=== PATIENT | male | born 1970 | race American Indian/Alaskan Native ===

== ENCOUNTER 2018-08-04 13:50 | Inpatient (IN) | payer SELFPAY ==
[2018-08-04] MEDS ORDERED: ZOFRAN ONE (13:56)
[2018-08-04] MEDS ORDERED: ZOFRAN IV ONE ×2 (14:23→16:18)
[2018-08-04] MEDS ORDERED: NACL 0.9% 1000 ML 1,000 ML IV ONE ×2 (14:23→16:18)
[2018-08-04] MEDS ORDERED: PROTONIX IV ONE (14:23)
[2018-08-04 14:44] LABS: Hematocrit 42.9 % (35.5-45.6); Hemoglobin 13.6 gm/dl (11.8-15.2); Mean Corpuscular HGB Conc 32 % (32-34); Mean Corpuscular Volume 70 fl (84-94); Platelet Count 253 K/mm3 (140-440); Red Blood Count 6.11 M/mm3 (3.65-5.03)
[2018-08-04 14:47] LABS: Red Cell Distribution Width 24.2 % (13.2-15.2)
[2018-08-04 14:56] LABS: Partial Thromboplastin Time 31.1 Sec. (24.2-36.6)
[2018-08-04 15:03] LABS: Creatine Kinase MB 1.2 ng/mL (0.0-4.0)
[2018-08-04 15:04] LABS: Alanine Aminotransferase 9 units/L (7-56); Albumin 5.2 g/dL (3.9-5); BUN/Creatinine Ratio 13; Blood Urea Nitrogen 9 mg/dL (9-20); Calcium 10.2 mg/dL (8.4-10.2); Hemolysis Index 2
[2018-08-04 15:07] LABS: Bilirubin,Direct < 0.2 mg/dL (0-0.2)
--- NOTE | 2018-08-04 15:08 | XRay Report ---
PROCEDURE: XR CHEST 1V AP TECHNIQUE: Chest radiograph single view. HISTORY: hypertension COMPARISONS: None . FINDINGS: Heart: Normal. Mediastinum/Vessels: Normal. Lungs/Pleural space: Normal. Bony thorax: No acute osseous abnormality. Life support devices: None. IMPRESSION: No acute cardiopulmonary abnormality. This document is electronically signed by Erwin Andersen MD., Aug 04 2018 03:06:35 PM ET
[2018-08-04 15:54] LABS: Anisocytosis 2+; Basophils % (Manual) 0 % (0.0-1.8); Eosinophils % (Manual) 0 % (0.0-4.3); Hypochromasia 1+; Total Cells Counted 100
[2018-08-04 15:55] LABS: Platelet Estimate Consistent w Auto; Poikilocytosis Few
--- NOTE | 2018-08-04 15:56 | Cat Scan Report ---
PROCEDURE: CT HEAD/BRAIN WO CON TECHNIQUE: Computerized tomography of the head was performed without contrast material. HISTORY: syncope, seizure COMPARISONS: None . FINDINGS: Skull and scalp: Normal . Paranasal sinuses: Normal . Ventricles and subarachnoid spaces: Normal . Cerebrum: No evidence of hemorrhage, acute infarction or mass . Cerebellum and brainstem: No evidence of hemorrhage, acute infarction or mass . Vasculature: Normal . Other: None . ASPECTS: 10 IMPRESSION: Normal Examination . This document is electronically signed by Jacquie Gallwoay MD., Aug 04 2018 03:54:19 PM ET
--- NOTE | 2018-08-04 16:05 | Emergency Department Report ---
ED General Adult HPI - General Chief complaint: Seizure Stated complaint: SYNCOPY Time Seen by Provider: 08/04/18 14:12 Source: patient Mode of arrival: Stretcher Limitations: No Limitations - History of Present Illness Initial comments: This is a 48-year-old male who states he has very poor dentition and has not been able to get dental care due to his lack of funds/coverage. He states he's never had a known serious dental infection. He states he has been vomiting and unable to eat. About 3 years ago he states he had a negative HIV test. Today he had an apparent seizure. He was found by his "fianc" frothing at the mouth. She didn't actually witness tonic-clonic movements. Patient states that he may have had a seizure when he was young but not since. He is not on any anticonvulsant medication. His fianc states that he was unresponsive. He arrives in the emergency department complaining of ongoing nausea but no pain. -: Gradual, hour(s) (vomiting), year(s) (dental problems) Severity scale (0 -10): 0 Associated Symptoms: nausea/vomiting - Related Data Allergies Allergy/AdvReac Type Severity Reaction Status Date / Time Penicillins Allergy Hives Verified 08/04/18 14:01 ED Review of Systems ROS: Stated complaint: SYNCOPY Other details as noted in HPI Constitutional: fever (thinks had fever). denies: chills Eyes: denies: eye pain, eye discharge, vision change ENT: as per HPI. denies: ear pain, throat pain Respiratory: denies: cough, shortness of breath, wheezing Cardiovascular: syncope. denies: chest pain, palpitations Endocrine: no symptoms reported Gastrointestinal: denies: abdominal pain, nausea, diarrhea Genitourinary: denies: urgency, dysuria Musculoskeletal: denies: back pain, joint swelling, arthralgia Skin: denies: rash, lesions Neurological: other (seizure). denies: headache, weakness, paresthesias Psychiatric: denies: anxiety, depression Hematological/Lymphatic: denies: easy bleeding, easy bruising ED Past Medical Hx - Past Medical History Previous Medical History?: Yes Hx Hypertension: Yes Hx GERD: Yes Additional medical history: Sickle Cell trait - Social History Smoking Status: Never Smoker Substance Use Type: None ED Physical Exam - General Limitations: No Limitations General appearance: alert, in no apparent distress, other (appears volume depleted) - Head Head exam: Present: atraumatic, normocephalic - Eye Eye exam: Present: normal appearance. Absent: scleral icterus - ENT ENT exam: Present: mucous membranes dry, other (horrible carrious dentition diffusely) - Neck Neck exam: Present: normal inspection. Absent: tenderness, meningismus - Respiratory Respiratory exam: Present: normal lung sounds bilaterally. Absent: respiratory distress - Cardiovascular Cardiovascular Exam: Present: regular rate, normal rhythm. Absent: systolic murmur, diastolic murmur, rubs, gallop - GI/Abdominal GI/Abdominal exam: Present: soft, normal bowel sounds. Absent: distended, tenderness, guarding, rebound, rigid - Rectal Rectal exam: Present: deferred - Extremities Exam Extremities exam: Present: normal inspection - Back Exam Back exam: Present: normal inspection - Neurological Exam Neurological exam: Present: alert, oriented X3, CN II-XII intact. Absent: motor sensory deficit - Psychiatric Psychiatric exam: Present: normal affect, normal mood - Skin Skin exam: Present: warm, dry, intact, normal color. Absent: rash ED Course Vital Signs 08/04/18 13:57 Temperature 99.3 F Pulse Rate 72 Respiratory 18 Rate Blood Pressure 163/84 [Right] O2 Sat by Pulse 96 Oximetry - Reevaluation(s) Reevaluation #1: Patient with hypokalemia, intractable vomiting, dental infection, seizure versus syncope and bifascicular block. He will be admitted by Dr. Barone to the hospitalist service. 08/04/18 16:21 ED Medical Decision Making - Lab Data Result diagrams: 08/04/18 14:24 08/04/18 14:24 Laboratory Results - last 24 hr 08/04/18 08/04/18 08/04/18 14:24 14:24 14:24 WBC 11.2 H RBC 6.11 H Hgb 13.6 Hct 42.9 MCV 70 L MCH 22 L MCHC 32 RDW 24.2 H Plt Count 253 Add Manual Diff Complete Total Counted 100 Seg Neuts % (Manual) 90.0 H Band Neutrophils % 0 Lymphocytes % (Manual) 7.0 L Reactive Lymphs % (Man) 0 Monocytes % (Manual) 3.0 Eosinophils % (Manual) 0 Basophils % (Manual) 0 Metamyelocytes % 0 Myelocytes % 0 Promyelocytes % 0 Blast Cells % 0 Nucleated RBC % Not Reportable Seg Neutrophils # Man 10.1 H Band Neutrophils # 0.0 Lymphocytes # (Manual) 0.8 L Abs React Lymphs (Man) 0.0 Monocytes # (Manual) 0.3 Eosinophils # (Manual) 0.0 Basophils # (Manual) 0.0 Metamyelocytes # 0.0 Myelocytes # 0.0 Promyelocytes # 0.0 Blast Cells # 0.0 WBC Morphology Not Reportable Hypersegmented Neuts Not Reportable Hyposegmented Neuts Not Reportable Hypogranular Neuts Not Reportable Smudge Cells Not Reportable Toxic Granulation Not Reportable Toxic Vacuolation Not Reportable Dohle Bodies Not Reportable Pelger-Huet Anomaly Not Reportable Cordelia Rods Not Reportable Platelet Estimate Consistent w auto Clumped Platelets Not Reportable Plt Clumps, EDTA Not Reportable Large Platelets Not Reportable Giant Platelets Not Reportable Platelet Satelliting Not Reportable Plt Morphology Comment Not Reportable RBC Morphology Not Reportable Dimorphic RBCs Not Reportable Polychromasia Few Hypochromasia 1+ Poikilocytosis Few Anisocytosis 2+ Microcytosis 1+ Macrocytosis Not Reportable Spherocytes Not Reportable Pappenheimer Bodies Not Reportable Sickle Cells Not Reportable Target Cells Not Reportable Tear Drop Cells Not Reportable Ovalocytes Not Reportable Helmet Cells Not Reportable [place] Bodies Not Reportable [place] Rings Not Reportable [place] Cells Not Reportable Bite Cells Not Reportable Crenated Cell Not Reportable Elliptocytes Not Reportable Acanthocytes (Spur) Not Reportable Rouleaux Not Reportable Hemoglobin C Crystals Not Reportable Schistocytes Not Reportable Malaria parasites Not Reportable Oleg Bodies Not Reportable Hem Pathologist Commnt No PT 13.8 INR 1.00 APTT 31.1 Sodium 137 Potassium 3.3 L Chloride 99.0 Carbon Dioxide 19 L Anion Gap 22 BUN 9 Creatinine 0.7 L Estimated GFR > 60 BUN/Creatinine Ratio 13 Glucose 107 H Lactic Acid Calcium 10.2 Magnesium Total Bilirubin 0.70 Direct Bilirubin < 0.2 AST 15 ALT 9 Alkaline Phosphatase 96 Total Creatine Kinase CK-MB (CK-2) CK-MB (CK-2) Rel Index Troponin T NT-Pro-B Natriuret Pep Total Protein 10.1 H Albumin 5.2 H Albumin/Globulin Ratio 1.1 08/04/18 08/04/18 08/04/18 14:24 14:24 14:24 WBC RBC Hgb Hct MCV MCH MCHC RDW Plt Count Add Manual Diff Total Counted Seg Neuts % (Manual) Band Neutrophils % Lymphocytes % (Manual) Reactive Lymphs % (Man) Monocytes % (Manual) Eosinophils % (Manual) Basophils % (Manual) Metamyelocytes % Myelocytes % Promyelocytes % Blast Cells % Nucleated RBC % Seg Neutrophils # Man Band Neutrophils # Lymphocytes # (Manual) Abs React Lymphs (Man) Monocytes # (Manual) Eosinophils # (Manual) Basophils # (Manual) Metamyelocytes # Myelocytes # Promyelocytes # Blast Cells # WBC Morphology TNR Hypersegmented Neuts Hyposegmented Neuts Hypogranular Neuts Smudge Cells Toxic Granulation Toxic Vacuolation Dohle Bodies Pelger-Huet Anomaly Cordelia Rods Platelet Estimate Clumped Platelets Plt Clumps, EDTA Large Platelets Giant Platelets Platelet Satelliting Plt Morphology Comment RBC Morphology Dimorphic RBCs Polychromasia Hypochromasia Poikilocytosis Anisocytosis Microcytosis Macrocytosis Spherocytes Pappenheimer Bodies Sickle Cells Target Cells Tear Drop Cells Ovalocytes Helmet Cells [place] Bodies [place] Rings [place] Cells Bite Cells Crenated Cell Elliptocytes Acanthocytes (Spur) Rouleaux Hemoglobin C Crystals Schistocytes Malaria parasites Oleg Bodies Hem Pathologist Commnt PT INR APTT Sodium Potassium Chloride Carbon Dioxide Anion Gap BUN Creatinine Estimated GFR BUN/Creatinine Ratio Glucose Lactic Acid 2.00 Calcium Magnesium 1.80 Total Bilirubin Direct Bilirubin AST ALT Alkaline Phosphatase Total Creatine Kinase 77 CK-MB (CK-2) 1.2 CK-MB (CK-2) Rel Index 1.5 Troponin T < 0.010 NT-Pro-B Natriuret Pep 89.74 Total Protein Albumin Albumin/Globulin Ratio - EKG Data -: EKG Interpreted by Co EKG shows normal: sinus rhythm - EKG Data Interpretation: nonspecific ST-T wave terra, other (left anterior fascicular block/right bundle-branch block/5 fascicular block) - Radiology Data Radiology results: pending (CT head is pending) Critical care attestation.: If time is entered above; I have spent that time in minutes in the direct care of this critically ill patient, excluding procedure time. ED Disposition Clinical Impression: Hypokalemia, Bifascicular block, Seizure, Volume depletion Syncope Qualifiers: Syncope type: unspecified Qualified Code(s): R55 - Syncope and collapse Intractable vomiting Qualifiers: Vomiting type: unspecified Nausea presence: with nausea Qualified Code(s): R11.2 - Nausea with vomiting, unspecified Disposition: 09 OP ADMIT IP TO THIS HOSP Is pt being admited?: Yes Does the pt Need Aspirin: No Condition: Stable Instructions: Syncope (ED) Time of Disposition: 16:24
--- NOTE | 2018-08-04 16:17 | Emergency Department Report ---
ED Syncope HPI - General Chief Complaint: Seizure Stated Complaint: SYNCOPY Time Seen by Provider: 08/04/18 14:12 - History of Present Illness Initial Comments: Mr. Santos is a 48 yo male with hx of sickle cell trait, anemia, GERD, anxiety, HTN, peripheral neuropathy who presents with fainting episode while vomiting. He has not been feeling well for the past 2 days. He attributed his illness to bad teeth. While vomiting at the toilet, he remembers going out. His fiancee found him on the ground. He appeared drowsy. She called 911. He denies chest pain or palpitations. PCP Dr. Gutiérrez in [place], [place] Timing/Prior Episodes: single episode today Precipitating Factors: Positive: other (vomiting) Loss of Consciousness: unsure Current Symptoms: back to normal - Related Data Allergies/Adverse Reactions: Allergies Penicillins Allergy (Verified 08/04/18 14:01) Hives ED Review of Systems ROS: Stated complaint: SYNCOPY Other details as noted in HPI Comment: All other systems reviewed and negative Constitutional: malaise Cardiovascular: denies: chest pain Gastrointestinal: vomiting ED Past Medical Hx - Past Medical History Previous Medical History?: Yes Hx Hypertension: Yes Hx GERD: Yes Additional medical history: Sickle Cell trait - Social History Smoking Status: Never Smoker Substance Use Type: None ED Physical Exam - General Limitations: No Limitations General appearance: alert, in no apparent distress - Head Head exam: Present: atraumatic, normocephalic - Eye Eye exam: Present: normal appearance - ENT ENT exam: Present: mucous membranes moist - Neck Neck exam: Present: normal inspection, full ROM - Respiratory Respiratory exam: Present: normal lung sounds bilaterally. Absent: respiratory distress, wheezes, rales, stridor - Cardiovascular Cardiovascular Exam: Present: regular rate, normal rhythm, normal heart sounds. Absent: systolic murmur, diastolic murmur, rubs, gallop - GI/Abdominal GI/Abdominal exam: Present: soft, normal bowel sounds. Absent: distended, tenderness, guarding, rebound - Rectal Rectal exam: Present: deferred - Extremities Exam Extremities exam: Present: normal inspection - Back Exam Back exam: Present: normal inspection - Neurological Exam Neurological exam: Present: alert, oriented X3 - Psychiatric Psychiatric exam: Present: normal affect, normal mood - Skin Skin exam: Present: warm, dry, intact, normal color. Absent: rash ED Course Vital Signs 08/04/18 13:57 Temperature 99.3 F Pulse Rate 72 Respiratory 18 Rate Blood Pressure 163/84 [Right] O2 Sat by Pulse 96 Oximetry ED Medical Decision Making - Lab Data Result diagrams: 08/04/18 14:24 08/04/18 14:24 Laboratory Results - last 24 hr 08/04/18 08/04/18 08/04/18 14:24 14:24 14:24 WBC 11.2 H RBC 6.11 H Hgb 13.6 Hct 42.9 MCV 70 L MCH 22 L MCHC 32 RDW 24.2 H Plt Count 253 Add Manual Diff Complete Total Counted 100 Seg Neuts % (Manual) 90.0 H Band Neutrophils % 0 Lymphocytes % (Manual) 7.0 L Reactive Lymphs % (Man) 0 Monocytes % (Manual) 3.0 Eosinophils % (Manual) 0 Basophils % (Manual) 0 Metamyelocytes % 0 Myelocytes % 0 Promyelocytes % 0 Blast Cells % 0 Nucleated RBC % Not Reportable Seg Neutrophils # Man 10.1 H Band Neutrophils # 0.0 Lymphocytes # (Manual) 0.8 L Abs React Lymphs (Man) 0.0 Monocytes # (Manual) 0.3 Eosinophils # (Manual) 0.0 Basophils # (Manual) 0.0 Metamyelocytes # 0.0 Myelocytes # 0.0 Promyelocytes # 0.0 Blast Cells # 0.0 WBC Morphology Not Reportable Hypersegmented Neuts Not Reportable Hyposegmented Neuts Not Reportable Hypogranular Neuts Not Reportable Smudge Cells Not Reportable Toxic Granulation Not Reportable Toxic Vacuolation Not Reportable Dohle Bodies Not Reportable Pelger-Huet Anomaly Not Reportable Cordelia Rods Not Reportable Platelet Estimate Consistent w auto Clumped Platelets Not Reportable Plt Clumps, EDTA Not Reportable Large Platelets Not Reportable Giant Platelets Not Reportable Platelet Satelliting Not Reportable Plt Morphology Comment Not Reportable RBC Morphology Not Reportable Dimorphic RBCs Not Reportable Polychromasia Few Hypochromasia 1+ Poikilocytosis Few Anisocytosis 2+ Microcytosis 1+ Macrocytosis Not Reportable Spherocytes Not Reportable Pappenheimer Bodies Not Reportable Sickle Cells Not Reportable Target Cells Not Reportable Tear Drop Cells Not Reportable Ovalocytes Not Reportable Helmet Cells Not Reportable [place] Bodies Not Reportable [place] Rings Not Reportable [place] Cells Not Reportable Bite Cells Not Reportable Crenated Cell Not Reportable Elliptocytes Not Reportable Acanthocytes (Spur) Not Reportable Rouleaux Not Reportable Hemoglobin C Crystals Not Reportable Schistocytes Not Reportable Malaria parasites Not Reportable Oleg Bodies Not Reportable Hem Pathologist Commnt No PT 13.8 INR 1.00 APTT 31.1 Sodium 137 Potassium 3.3 L Chloride 99.0 Carbon Dioxide 19 L Anion Gap 22 BUN 9 Creatinine 0.7 L Estimated GFR > 60 BUN/Creatinine Ratio 13 Glucose 107 H Lactic Acid Calcium 10.2 Magnesium Total Bilirubin 0.70 Direct Bilirubin < 0.2 AST 15 ALT 9 Alkaline Phosphatase 96 Total Creatine Kinase CK-MB (CK-2) CK-MB (CK-2) Rel Index Troponin T NT-Pro-B Natriuret Pep Total Protein 10.1 H Albumin 5.2 H Albumin/Globulin Ratio 1.1 08/04/18 08/04/18 08/04/18 14:24 14:24 14:24 WBC RBC Hgb Hct MCV MCH MCHC RDW Plt Count Add Manual Diff Total Counted Seg Neuts % (Manual) Band Neutrophils % Lymphocytes % (Manual) Reactive Lymphs % (Man) Monocytes % (Manual) Eosinophils % (Manual) Basophils % (Manual) Metamyelocytes % Myelocytes % Promyelocytes % Blast Cells % Nucleated RBC % Seg Neutrophils # Man Band Neutrophils # Lymphocytes # (Manual) Abs React Lymphs (Man) Monocytes # (Manual) Eosinophils # (Manual) Basophils # (Manual) Metamyelocytes # Myelocytes # Promyelocytes # Blast Cells # WBC Morphology TNR Hypersegmented Neuts Hyposegmented Neuts Hypogranular Neuts Smudge Cells Toxic Granulation Toxic Vacuolation Dohle Bodies Pelger-Huet Anomaly Cordelia Rods Platelet Estimate Clumped Platelets Plt Clumps, EDTA Large Platelets Giant Platelets Platelet Satelliting Plt Morphology Comment RBC Morphology Dimorphic RBCs Polychromasia Hypochromasia Poikilocytosis Anisocytosis Microcytosis Macrocytosis Spherocytes Pappenheimer Bodies Sickle Cells Target Cells Tear Drop Cells Ovalocytes Helmet Cells [place] Bodies [place] Rings [place] Cells Bite Cells Crenated Cell Elliptocytes Acanthocytes (Spur) Rouleaux Hemoglobin C Crystals Schistocytes Malaria parasites Oleg Bodies Hem Pathologist Commnt PT INR APTT Sodium Potassium Chloride Carbon Dioxide Anion Gap BUN Creatinine Estimated GFR BUN/Creatinine Ratio Glucose Lactic Acid 2.00 Calcium Magnesium 1.80 Total Bilirubin Direct Bilirubin AST ALT Alkaline Phosphatase Total Creatine Kinase 77 CK-MB (CK-2) 1.2 CK-MB (CK-2) Rel Index 1.5 Troponin T < 0.010 NT-Pro-B Natriuret Pep 89.74 Total Protein Albumin Albumin/Globulin Ratio - Radiology Data Radiology results: report reviewed CT head and portable chest x-ray no acute process according to radiology report - Medical Decision Making vasovagal syncope while vomiting. NO acute infectious process evident. dc'd home after IVF. Critical care attestation.: If time is entered above; I have spent that time in minutes in the direct care of this critically ill patient, excluding procedure time. ED Disposition Clinical Impression: Syncope Disposition: DC-01 TO HOME OR SELFCARE Is pt being admited?: No Does the pt Need Aspirin: No Condition: Stable Instructions: Syncope (ED)
[2018-08-04] MEDS ORDERED: CLEOCIN 600 MG/50 mL 600 MG/50 ML BAG IV ONE (16:19)
[2018-08-04] MEDS ORDERED: MAGNESIUM SULFATE 2GM/50ML 2 GM/50 ML BAG IV ONE (16:21)
[2018-08-04 16:38] LABS: Bilirubin,Urine NEG (Negative); Blood,Urine MOD (Negative); Color,Urine Yellow (Yellow); Mucus,Urine FEW /HPF; Urobilinogen,Urine < 2.0 mg/dL (<2.0); WBC,Urine < 1.0 /HPF (0.0-6.0)
[2018-08-04 16:47] LABS: Amphetamine Screen,Urine PRESUMPTIVE NEGATIVE; Benzodiazepines Screen,Urine PRESUMPTIVE NEGATIVE; Cannabinoid Screen,Urine PRESUMPTIVE NEGATIVE; Cocaine Screen,Urine PRESUMPTIVE NEGATIVE; Methadone Screen,Urine PRESUMPTIVE NEGATIVE; Opiate Screen,Urine PRESUMPTIVE NEGATIVE
[2018-08-04] MEDS: DILAUDID IV PRN ×2 (18:50→22:04)
[2018-08-04] MEDS: REGLAN IV PRN (18:50)
[2018-08-04] MEDS: KCL 10MEQ/100ML 10 MEQ/100 ML BAG IV SCH ×2 (20:12→20:57)
--- NOTE | 2018-08-04 21:17 | History and Physical Report ---
History of Present Illness Date of examination: 08/04/18 Date of admission: 08/04/18 16:25 Chief complaint: New onset seizures couple of hours ago. History of present illness: 48-year-old AA male brought in for seizures and persistent vomiting.Patient has been vomiting for couple of days.His fiance noted Seizures c/w tonic clonic movements and followed by unresponsiveness.Apparently had seizures few years ago but not on any anticonvulsants.Seizures were followed b unresponsiveness.Was alert and oriented during my examination. Past Medical History Hypertension: Yes GERD: Yes Sickle Cell trait Past surgical history None Family History Non contributory Social History Smoking Status: Never Smoker Substance Use Type: None Review of Systems ROS: Stated complaint: SYNCOPY Other details as noted in HPI Constitutional: fever (thinks had fever). denies: chills Eyes: denies: eye pain, eye discharge, vision change ENT: as per HPI. denies: ear pain, throat pain Respiratory: denies: cough, shortness of breath, wheezing Cardiovascular: syncope. denies: chest pain, palpitations Endocrine: no symptoms reported Gastrointestinal: denies: abdominal pain, nausea, diarrhea Genitourinary: denies: urgency, dysuria Musculoskeletal: denies: back pain, joint swelling, arthralgia Skin: denies: rash, lesions Neurological: other (seizure). denies: headache, weakness, paresthesias Psychiatric: denies: anxiety, depression Hematological/Lymphatic: denies: easy bleeding, easy bruising Medications and Allergies Allergies Allergy/AdvReac Type Severity Reaction Status Date / Time Penicillins Allergy Hives Verified 08/04/18 14:01 Active Meds: Active Medications Hydromorphone HCl (Dilaudid) 0.5 mg IV Q3H PRN PRN Reason: Pain , Severe (7-10) Last Admin: 08/04/18 18:50 Dose: 0.5 mg Documented by: Metoclopramide HCl (Reglan) 10 mg IV Q6H PRN PRN Reason: Nausea And Vomiting Last Admin: 08/04/18 18:50 Dose: 10 mg Documented by: Promethazine HCl (Phenergan) 25 mg NH Q6H PRN PRN Reason: Nausea And Vomiting Exam - Constitutional Vitals: Temp Pulse Resp BP Pulse Ox 99.6 F 76 17 154/89 99 08/04/18 18:00 08/04/18 18:00 08/04/18 19:20 08/04/18 18:00 08/04/18 18:00 General appearance: Present: no acute distress, well-nourished - EENT Eyes: Present: PERRL ENT: hearing intact, clear oral mucosa - Neck Neck: Present: supple, normal ROM - Respiratory Respiratory effort: normal Respiratory: bilateral: CTA - Cardiovascular Heart rate: 78 Rhythm: regular Heart Sounds: Present: S1 & S2. Absent: rub, click - Extremities Extremities: no ischemia, pulses intact, pulses symmetrical, No edema Peripheral Pulses: within normal limits - Abdominal General gastrointestinal: Present: soft, non-tender, non-distended, normal bowel sounds Male genitourinary: Present: normal - Integumentary Integumentary: Present: clear, warm, dry - Musculoskeletal Musculoskeletal: gait normal, strength equal bilaterally - Psychiatric Psychiatric: appropriate mood/affect, intact judgment & insight - Neurologic Neurologic: CNII-XII intact, moves all extremities - Allied Health Allied health notes reviewed: nursing, case management Results - Labs CBC & Chem 7: 08/04/18 14:24 08/04/18 14:24 Labs: Laboratory Last Values WBC 11.2 K/mm3 (4.5-11.0) H 08/04/18 14:24 RBC 6.11 M/mm3 (3.65-5.03) H 08/04/18 14:24 Hgb 13.6 gm/dl (11.8-15.2) 08/04/18 14:24 Hct 42.9 % (35.5-45.6) 08/04/18 14:24 MCV 70 fl (84-94) L 08/04/18 14:24 MCH 22 pg (28-32) L 08/04/18 14:24 MCHC 32 % (32-34) 08/04/18 14:24 RDW 24.2 % (13.2-15.2) H 08/04/18 14:24 Plt Count 253 K/mm3 (140-440) 08/04/18 14:24 Add Manual Diff Complete 08/04/18 14:24 Total Counted 100 08/04/18 14:24 Seg Neuts % (Manual) 90.0 % (40.0-70.0) H 08/04/18 14:24 0 % 08/04/18 14:24 7.0 % (13.4-35.0) L 08/04/18 14:24 Reactive Lymphs % (Man) 0 % 08/04/18 14:24 3.0 % (0.0-7.3) 08/04/18 14:24 0 % (0.0-4.3) 08/04/18 14:24 0 % (0.0-1.8) 08/04/18 14:24 0 % 08/04/18 14:24 0 % 08/04/18 14:24 0 % 08/04/18 14:24 0 % 08/04/18 14:24 Nucleated RBC % Not Reportable 08/04/18 14:24 Seg Neutrophils # Man 10.1 K/mm3 (1.8-7.7) H 08/04/18 14:24 Band Neutrophils # 0.0 K/mm3 08/04/18 14:24 0.8 K/mm3 (1.2-5.4) L 08/04/18 14:24 Abs React Lymphs (Man) 0.0 K/mm3 08/04/18 14:24 0.3 K/mm3 (0.0-0.8) 08/04/18 14:24 0.0 K/mm3 (0.0-0.4) 08/04/18 14:24 0.0 K/mm3 (0.0-0.1) 08/04/18 14:24 0.0 K/mm3 08/04/18 14:24 0.0 K/mm3 08/04/18 14:24 0.0 K/mm3 08/04/18 14:24 Blast Cells # 0.0 K/mm3 08/04/18 14:24 WBC Morphology Not Reportable 08/04/18 14:24 WBC Morphology TNR 08/04/18 14:24 Hypersegmented Neuts Not Reportable 08/04/18 14:24 Hyposegmented Neuts Not Reportable 08/04/18 14:24 Hypogranular Neuts Not Reportable 08/04/18 14:24 Not Reportable 08/04/18 14:24 Not Reportable 08/04/18 14:24 Not Reportable 08/04/18 14:24 Not Reportable 08/04/18 14:24 Not Reportable 08/04/18 14:24 Not Reportable 08/04/18 14:24 Consistent w auto 08/04/18 14:24 Not Reportable 08/04/18 14:24 Plt Clumps, EDTA Not Reportable 08/04/18 14:24 Not Reportable 08/04/18 14:24 Not Reportable 08/04/18 14:24 Not Reportable 08/04/18 14:24 Plt Morphology Comment Not Reportable 08/04/18 14:24 RBC Morphology Not Reportable 08/04/18 14:24 Dimorphic RBCs Not Reportable 08/04/18 14:24 Few 08/04/18 14:24 1+ 08/04/18 14:24 Few 08/04/18 14:24 2+ 08/04/18 14:24 1+ 08/04/18 14:24 Not Reportable 08/04/18 14:24 Not Reportable 08/04/18 14:24 Not Reportable 08/04/18 14:24 Not Reportable 08/04/18 14:24 Not Reportable 08/04/18 14:24 Not Reportable 08/04/18 14:24 Not Reportable 08/04/18 14:24 Not Reportable 08/04/18 14:24 Not Reportable 08/04/18 14:24 Not Reportable 08/04/18 14:24 Not Reportable 08/04/18 14:24 Not Reportable 08/04/18 14:24 Not Reportable 08/04/18 14:24 Not Reportable 08/04/18 14:24 Acanthocytes (Spur) Not Reportable 08/04/18 14:24 Rouleaux Not Reportable 08/04/18 14:24 Not Reportable 08/04/18 14:24 Not Reportable 08/04/18 14:24 Not Reportable 08/04/18 14:24 Not Reportable 08/04/18 14:24 Hem Pathologist Commnt No 08/04/18 14:24 PT 13.8 Sec. (12.2-14.9) 08/04/18 14:24 INR 1.00 (0.87-1.13) 08/04/18 14:24 APTT 31.1 Sec. (24.2-36.6) 08/04/18 14:24 Sodium 137 mmol/L (137-145) 08/04/18 14:24 Potassium 3.3 mmol/L (3.6-5.0) L 08/04/18 14:24 Chloride 99.0 mmol/L (98-107) 08/04/18 14:24 Carbon Dioxide 19 mmol/L (22-30) L 08/04/18 14:24 22 mmol/L 08/04/18 14:24 BUN 9 mg/dL (9-20) 08/04/18 14:24 0.7 mg/dL (0.8-1.5) L 08/04/18 14:24 Estimated GFR > 60 ml/min 08/04/18 14:24 13 % 08/04/18 14:24 Glucose 107 mg/dL (75-100) H 08/04/18 14:24 Lactic Acid 1.60 mmol/L (0.7-2.0) 08/04/18 16:05 Calcium 10.2 mg/dL (8.4-10.2) 08/04/18 14:24 Magnesium 1.80 mg/dL (1.7-2.3) 08/04/18 14:24 0.70 mg/dL (0.1-1.2) 08/04/18 14:24 < 0.2 mg/dL (0-0.2) 08/04/18 14:24 AST 15 units/L (5-40) 08/04/18 14:24 ALT 9 units/L (7-56) 08/04/18 14:24 96 units/L (35-129) 08/04/18 14:24 77 units/L (55-170) 08/04/18 14:24 CK-MB (CK-2) 1.2 ng/mL (0.0-4.0) 08/04/18 14:24 CK-MB (CK-2) Rel Index 1.5 (0-4) 08/04/18 14:24 < 0.010 ng/mL (0.00-0.029) 08/04/18 14:24 NT-Pro-B Natriuret Pep 89.74 pg/mL (0-450) 08/04/18 14:24 10.1 g/dL (6.3-8.2) H 08/04/18 14:24 5.2 g/dL (3.9-5) H 08/04/18 14:24 1.1 % 08/04/18 14:24 Yellow (Yellow) 08/04/18 Unknown Clear (Clear) 08/04/18 Unknown 6.0 (5.0-7.0) 08/04/18 Unknown Ur Specific [place] 1.019 (1.003-1.030) 08/04/18 Unknown 30 mg/dl mg/dL (Negative) 08/04/18 Unknown Neg mg/dL (Negative) 08/04/18 Unknown 80 mg/dL (Negative) 08/04/18 Unknown Mod (Negative) 08/04/18 Unknown Neg (Negative) 08/04/18 Unknown Neg (Negative) 08/04/18 Unknown < 2.0 mg/dL (<2.0) 08/04/18 Unknown Ur Leukocyte Esterase Neg (Negative) 08/04/18 Unknown < 1.0 /HPF (0.0-6.0) 08/04/18 Unknown 2.0 /HPF (0.0-6.0) 08/04/18 Unknown Few /HPF 08/04/18 Unknown Presumptive negative 08/04/18 Unknown Presumptive negative 08/04/18 Unknown Ur Barbiturates Screen Presumptive negative 08/04/18 Unknown Ur Phencyclidine Scrn Presumptive negative 08/04/18 Unknown Ur Amphetamines Screen Presumptive negative 08/04/18 Unknown U Benzodiazepines Scrn Presumptive negative 08/04/18 Unknown Presumptive negative 08/04/18 Unknown U Marijuana (THC) Screen Presumptive negative 08/04/18 Unknown Disclamer 08/04/18 Unknown Short CBC 08/04/18 Range/Units 14:24 WBC 11.2 H (4.5-11.0) K/mm3 Hgb 13.6 (11.8-15.2) gm/dl Hct 42.9 (35.5-45.6) % Plt Count 253 (140-440) K/mm3 BMP 08/04/18 14:24 Sodium 137 Potassium 3.3 L Chloride 99.0 Carbon Dioxide 19 L BUN 9 Creatinine 0.7 L Glucose 107 H Calcium 10.2 Cardiac Enzymes 08/04/18 Range/Units 14:24 Total Creatine Kinase 77 (55-170) units/L CK-MB (CK-2) 1.2 (0.0-4.0) ng/mL Troponin T < 0.010 (0.00-0.029) ng/mL Liver Function 08/04/18 Range/Units 14:24 Total Bilirubin 0.70 (0.1-1.2) mg/dL Direct Bilirubin < 0.2 (0-0.2) mg/dL AST 15 (5-40) units/L ALT 9 (7-56) units/L Alkaline Phosphatase 96 (35-129) units/L Albumin 5.2 H (3.9-5) g/dL Urine 08/04/18 Range/Units Unknown Urine Color Yellow (Yellow) Urine pH 6.0 (5.0-7.0) Ur Specific [place] 1.019 (1.003-1.030) Urine Protein 30 mg/dl (Negative) mg/dL Urine Glucose (UA) Neg (Negative) mg/dL - Imaging and Cardiology Chest x-ray: report reviewed (NAF) CT Scan - head: report reviewed (NAF) Assessment and Plan Advance Directives: Yes (full code) VTE prophylaxis?: Chemical Plan of care discussed with patient/family: Yes - Patient Problems (1) New onset seizure Current Visit: Yes Status: Acute Plan to address problem: Patient initiated on IV Keppra To be transitioned to Po Keppra tomorrow. EEG ordered Neuro consult (2) Acute gastritis Current Visit: Yes Status: Acute Qualifiers: Gastritis type: unspecified gastritis Plan to address problem: IV fluids and IV Protonix for now (3) HTN (hypertension) Current Visit: Yes Status: Chronic Qualifiers: Hypertension type: essential hypertension Qualified Code(s): I10 - Essential (primary) hypertension Plan to address problem: Cont antihypertensives (4) GERD (gastroesophageal reflux disease) Current Visit: Yes Status: Chronic Qualifiers: Esophagitis presence: with esophagitis Qualified Code(s): K21.0 - Gastro- esophageal reflux disease with esophagitis Plan to address problem: On PPI's (5) Hypokalemia Current Visit: Yes Status: Acute Plan to address problem: Supplemented (6) DVT prophylaxis Current Visit: Yes Status: Acute Plan to address problem: Lovenox and GI prophylaxis
[2018-08-04] MEDS ORDERED: SODIUM CHLORIDE FLUSH SYRINGE 10 ML IV PRN ×2 (21:18→21:22)
[2018-08-04] MEDS ORDERED: TYLENOL PO PRN ×2 (21:18→21:22)
[2018-08-04] MEDS ORDERED: ZOFRAN IV PRN (21:22)
[2018-08-04] MEDS ORDERED: AUGMENTIN 875 MG PO SCH (22:00)
[2018-08-04] MEDS ORDERED: SODIUM CHLORIDE FLUSH SYRINGE 10 ML IV SCH (22:00)
[2018-08-04] MEDS: PEPCID IV SCH (22:04)
[2018-08-04] MEDS: SODIUM CHLORIDE FLUSH SYRINGE 10 ML IV SCH (22:04)
[2018-08-04] MEDS: KEPPRA 750 MG in D5W 100 ML IV SCH (22:56)
[2018-08-04] MEDS: LEVAQUIN PO SCH (22:56)
[2018-08-05] MEDS: DILAUDID IV PRN ×5 (01:17→21:33)
[2018-08-05] MEDS: REGLAN IV PRN ×2 (01:18→13:05)
[2018-08-05] MEDS: ZOFRAN IV PRN ×2 (05:46→16:32)
[2018-08-05] MEDS: PEPCID IV SCH ×2 (09:17→21:34)
[2018-08-05] MEDS: NACL 0.9% 1000 ML 1,000 ML IV SCH (09:17)
[2018-08-05] MEDS: PHENERGAN PR PRN ×2 (09:18→18:51)
[2018-08-05] MEDS: SODIUM CHLORIDE FLUSH SYRINGE 10 ML IV SCH ×2 (09:23→21:36)
[2018-08-05] MEDS: KEPPRA 750 MG in D5W 100 ML IV SCH (09:29)
[2018-08-05 10:22] LABS: Hematocrit 38.7 % (35.5-45.6); Mean Corpuscular HGB Conc 34 % (32-34); Mean Corpuscular Volume 70 fl (84-94); Platelet Count 238 K/mm3 (140-440); Red Blood Count 5.57 M/mm3 (3.65-5.03); Red Cell Distribution Width 23.9 % (13.2-15.2)
[2018-08-05 10:28] LABS: Alanine Aminotransferase 7 units/L (7-56); Albumin 4.5 g/dL (3.9-5); BUN/Creatinine Ratio 10; Blood Urea Nitrogen 6 mg/dL (9-20); Calcium 8.8 mg/dL (8.4-10.2); Hemolysis Index 3
[2018-08-05 12:42] LABS: Anisocytosis 2+; Eosinophils % (Manual) 0 % (0.0-4.3); Total Cells Counted 100
[2018-08-05 12:43] LABS: Hypochromasia 1+; Large Platelets Few; Platelet Estimate Consistent w Auto
[2018-08-05] MEDS ORDERED: KEPPRA 1,000 MG in D5W 100 ML IV ONE (13:00)
--- NOTE | 2018-08-05 14:11 | Progress Note ---
Assessment and Plan Assessment and plan: 48-year-old AA male brought in for seizures and persistent vomiting.Patient has been vomiting for couple of days. His fianc found him passed out with vomit around his mouth Past Medical History Hypertension: Yes GERD: Yes Sickle Cell trait CTH wnl syncope/transient autonomic imbalance -The patient did not have a seizure, he was found to be passed out after vomiting multiple times -Likely due to vasovagal, persistent vomiting and dehydration, resolved abdominal pain, n/v anti-emetics as needed, ct abdomen and pelvis HTN (hypertension) Cont antihypertensives GERD (gastroesophageal reflux disease): On PPI's Hypokalemia Supplemented DVT prophylaxis Lovenox and GI prophylaxis History Interval history: Review of systems Constitutional: No fevers, no malaise, no joint pains CVS: No chest pain, no orthopnea, no pedal edema GI: Continues to complain of intractable nausea vomiting and abdominal pain Respiratory: No shortness of breath, no wheezing, no coughing Hospitalist Physical - Physical exam Narrative exam: General.: Moderate distress, nontoxic HEENT: Moist mucous membranes, extraocular muscles intact, no lymphadenopathy Neck: supple Cardiac: S1-S2 heard Lungs: clear to auscultation bilaterally Abdomen: soft , nontender, nondistended, bowel sounds positive Extremities: no edema clubbing or cyanosis Skin: no rash or lesions Neurologic: no gross focal deficits Psych: calm, and cooperative - Constitutional Vitals: Temp Pulse Resp BP Pulse Ox 98.0 F 75 17 136/75 99 08/05/18 11:19 08/05/18 04:59 08/05/18 06:15 08/05/18 04:59 08/05/18 04:59 General appearance: Present: no acute distress, well-nourished Results - Labs CBC & Chem 7: 08/05/18 09:30 08/05/18 09:30 Labs: Laboratory Last Values WBC 10.7 K/mm3 (4.5-11.0) 08/05/18 09:30 RBC 5.57 M/mm3 (3.65-5.03) H 08/05/18 09:30 Hgb 13.0 gm/dl (11.8-15.2) 08/05/18 09:30 Hct 38.7 % (35.5-45.6) 08/05/18 09:30 MCV 70 fl (84-94) L 08/05/18 09:30 MCH 23 pg (28-32) L 08/05/18 09:30 MCHC 34 % (32-34) 08/05/18 09:30 RDW 23.9 % (13.2-15.2) H 08/05/18 09:30 Plt Count 238 K/mm3 (140-440) 08/05/18 09:30 Add Manual Diff Complete 08/05/18 09:30 Total Counted 100 08/05/18 09:30 Seg Neuts % (Manual) 76.0 % (40.0-70.0) H 08/05/18 09:30 0 % 08/05/18 09:30 14.0 % (13.4-35.0) 08/05/18 09:30 Reactive Lymphs % (Man) 0 % 08/05/18 09:30 7.0 % (0.0-7.3) 08/05/18 09:30 0 % (0.0-4.3) 08/05/18 09:30 3.0 % (0.0-1.8) H 08/05/18 09:30 0 % 08/05/18 09:30 0 % 08/05/18 09:30 0 % 08/05/18 09:30 0 % 08/05/18 09:30 Nucleated RBC % Not Reportable 08/05/18 09:30 Seg Neutrophils # Man 8.1 K/mm3 (1.8-7.7) H 08/05/18 09:30 Band Neutrophils # 0.0 K/mm3 08/05/18 09:30 1.5 K/mm3 (1.2-5.4) 08/05/18 09:30 Abs React Lymphs (Man) 0.0 K/mm3 08/05/18 09:30 0.7 K/mm3 (0.0-0.8) 08/05/18 09:30 0.0 K/mm3 (0.0-0.4) 08/05/18 09:30 0.3 K/mm3 (0.0-0.1) H 08/05/18 09:30 0.0 K/mm3 08/05/18 09:30 0.0 K/mm3 08/05/18 09:30 0.0 K/mm3 08/05/18 09:30 Blast Cells # 0.0 K/mm3 08/05/18 09:30 WBC Morphology Not Reportable 08/05/18 09:30 Hypersegmented Neuts Not Reportable 08/05/18 09:30 Hyposegmented Neuts Not Reportable 08/05/18 09:30 Hypogranular Neuts Not Reportable 08/05/18 09:30 Not Reportable 08/05/18 09:30 Not Reportable 08/05/18 09:30 Not Reportable 08/05/18 09:30 Not Reportable 08/05/18 09:30 Not Reportable 08/05/18 09:30 Not Reportable 08/05/18 09:30 Consistent w auto 08/05/18 09:30 Not Reportable 08/05/18 09:30 Plt Clumps, EDTA Not Reportable 08/05/18 09:30 Few 08/05/18 09:30 Not Reportable 08/05/18 09:30 Not Reportable 08/05/18 09:30 Plt Morphology Comment Not Reportable 08/05/18 09:30 RBC Morphology Not Reportable 08/05/18 09:30 Dimorphic RBCs Not Reportable 08/05/18 09:30 Not Reportable 08/05/18 09:30 1+ 08/05/18 09:30 Not Reportable 08/05/18 09:30 2+ 08/05/18 09:30 1+ 08/05/18 09:30 Not Reportable 08/05/18 09:30 Not Reportable 08/05/18 09:30 Not Reportable 08/05/18 09:30 Not Reportable 08/05/18 09:30 Not Reportable 08/05/18 09:30 Not Reportable 08/05/18 09:30 Not Reportable 08/05/18 09:30 Not Reportable 08/05/18 09:30 Not Reportable 08/05/18 09:30 Not Reportable 08/05/18 09:30 Not Reportable 08/05/18 09:30 Not Reportable 08/05/18 09:30 Not Reportable 08/05/18 09:30 Not Reportable 08/05/18 09:30 Acanthocytes (Spur) Not Reportable 08/05/18 09:30 Rouleaux Not Reportable 08/05/18 09:30 Not Reportable 08/05/18 09:30 Not Reportable 08/05/18 09:30 Not Reportable 08/05/18 09:30 Not Reportable 08/05/18 09:30 Hem Pathologist Commnt No 08/05/18 09:30 PT 13.8 Sec. (12.2-14.9) 08/04/18 14:24 INR 1.00 (0.87-1.13) 08/04/18 14:24 APTT 31.1 Sec. (24.2-36.6) 08/04/18 14:24 Sodium 134 mmol/L (137-145) L 08/05/18 09:30 Potassium 3.7 mmol/L (3.6-5.0) 08/05/18 09:30 Chloride 98.5 mmol/L (98-107) 08/05/18 09:30 Carbon Dioxide 19 mmol/L (22-30) L 08/05/18 09:30 20 mmol/L 08/05/18 09:30 BUN 6 mg/dL (9-20) L 08/05/18 09:30 0.6 mg/dL (0.8-1.5) L 08/05/18 09:30 Estimated GFR > 60 ml/min 08/05/18 09:30 10 % 08/05/18 09:30 Glucose 118 mg/dL (75-100) H 08/05/18 09:30 4.7 % (4-6) 08/04/18 21:21 Lactic Acid 1.60 mmol/L (0.7-2.0) 08/04/18 16:05 Calcium 8.8 mg/dL (8.4-10.2) 08/05/18 09:30 Magnesium 1.80 mg/dL (1.7-2.3) 08/04/18 14:24 0.70 mg/dL (0.1-1.2) 08/05/18 09:30 < 0.2 mg/dL (0-0.2) 08/04/18 14:24 AST 12 units/L (5-40) 08/05/18 09:30 ALT 7 units/L (7-56) 08/05/18 09:30 78 units/L (35-129) 08/05/18 09:30 77 units/L (55-170) 08/04/18 14:24 CK-MB (CK-2) 1.2 ng/mL (0.0-4.0) 08/04/18 14:24 CK-MB (CK-2) Rel Index 1.5 (0-4) 08/04/18 14:24 < 0.010 ng/mL (0.00-0.029) 08/04/18 14:24 NT-Pro-B Natriuret Pep 89.74 pg/mL (0-450) 08/04/18 14:24 8.4 g/dL (6.3-8.2) H 08/05/18 09:30 4.5 g/dL (3.9-5) 08/05/18 09:30 1.2 % 08/05/18 09:30 Yellow (Yellow) 08/04/18 Unknown Clear (Clear) 08/04/18 Unknown 6.0 (5.0-7.0) 08/04/18 Unknown Ur Specific [place] 1.019 (1.003-1.030) 08/04/18 Unknown 30 mg/dl mg/dL (Negative) 08/04/18 Unknown Neg mg/dL (Negative) 08/04/18 Unknown 80 mg/dL (Negative) 08/04/18 Unknown Mod (Negative) 08/04/18 Unknown Neg (Negative) 08/04/18 Unknown Neg (Negative) 08/04/18 Unknown < 2.0 mg/dL (<2.0) 08/04/18 Unknown Ur Leukocyte Esterase Neg (Negative) 08/04/18 Unknown < 1.0 /HPF (0.0-6.0) 08/04/18 Unknown 2.0 /HPF (0.0-6.0) 08/04/18 Unknown Few /HPF 08/04/18 Unknown Presumptive negative 08/04/18 Unknown Presumptive negative 08/04/18 Unknown Ur Barbiturates Screen Presumptive negative 08/04/18 Unknown Ur Phencyclidine Scrn Presumptive negative 08/04/18 Unknown Ur Amphetamines Screen Presumptive negative 08/04/18 Unknown U Benzodiazepines Scrn Presumptive negative 08/04/18 Unknown Presumptive negative 08/04/18 Unknown U Marijuana (THC) Screen Presumptive negative 08/04/18 Unknown Disclamer 08/04/18 Unknown Active Medications - Current Medications Current Medications: Generic Name Dose Route Start Last Admin Trade Name Freq PRN Reason Stop Dose Admin Acetaminophen 650 mg 08/04/18 21:18 Tylenol PO Q4H PRN Pain MILD(1-3)/Fever >100.5/MCKEON Enoxaparin Sodium 40 mg 08/05/18 22:00 Lovenox SUB-Q QDAY@2200 MARTHA Famotidine 20 mg 08/04/18 22:00 08/05/18 09:17 Pepcid IV 20 mg BID MARTHA Administration Hydromorphone HCl 0.5 mg 08/04/18 18:33 08/05/18 11:11 Dilaudid IV 0.5 mg Q3H PRN Administration Pain , Severe (7-10) Sodium Chloride 1,000 mls @ 75 mls/hr 08/04/18 22:00 08/05/18 09:17 Nacl 0.9% 1000 Ml IV 75 mls/hr DIRECT MARTHA Administration Levetiracetam 1,000 mg/ 110 mls @ 400 mls/hr 08/05/18 22:00 Dextrose IV Q12HR MARTHA Levofloxacin 750 mg 08/04/18 22:00 08/04/18 22:56 Levaquin PO 08/10/18 22:01 750 mg Q24HR@2200 MARTHA Administration Metoclopramide HCl 10 mg 08/04/18 18:32 08/05/18 13:05 Reglan IV 10 mg Q6H PRN Administration Nausea And Vomiting Ondansetron HCl 4 mg 08/04/18 21:18 08/05/18 05:46 Zofran IV 4 mg Q8H PRN Administration Nausea And Vomiting Oxycodone/Acetaminophen 1 tab 08/04/18 21:18 Percocet 5/325 PO Q6H PRN Pain, Moderate (4-6) Promethazine HCl 25 mg 08/04/18 18:32 08/05/18 09:18 Phenergan [place] 25 mg Q6H PRN Administration Nausea And Vomiting Sodium Chloride 10 ml 08/04/18 22:00 08/05/18 09:23 Sodium Chloride Flush Syringe 10 Ml IV 10 ml BID MARTHA Administration Sodium Chloride 10 ml 08/04/18 21:18 Sodium Chloride Flush Syringe 10 Ml IV PRN PRN LINE FLUSH
[2018-08-05] MEDS ORDERED: NON-FORMULARY (Gabapentin 100 MG) PO PRN (14:13)
[2018-08-05] MEDS ORDERED: NON-FORMULARY (Amlodipine 5 MG) PO SCH (14:15)
[2018-08-05] MEDS ORDERED: HIGH POTENCY IRON PO SCH (14:15)
[2018-08-05] MEDS: NORVASC PO SCH (16:34)
--- NOTE | 2018-08-05 16:42 | XRay Report ---
PROCEDURE: XR ABDOMEN 1V AP TECHNIQUE: Abdominal radiograph, single view. HISTORY: n/v abdominal pain COMPARISONS: None . FINDINGS: Bowel gas pattern: Nonobstructive . Moderate stool is present in the ascending colon. Masses or calcifications: None . Bony structures: No significant abnormality . Other: None . IMPRESSION: No acute abnormality. This document is electronically signed by Jacquie Galloway MD., Aug 05 2018 04:40:43 PM ET
[2018-08-05] MEDS: LOVENOX SUB-Q SCH (21:35)
--- NOTE | 2018-08-05 22:49 | Cat Scan Report ---
PROCEDURE: CT ABDOMEN PELVIS W CON TECHNIQUE: Computerized axial tomography of the abdomen and pelvis was performed after the IV inject ion of iodinated nonionic contrast. CT DOSE LENGTH PRODUCT: 1159.3 mGycm HISTORY: abdo pain, n/v COMPARISONS: None . FINDINGS: Visualized lower thorax: No significant abnormality. Liver: Normal size and attenuation. There a 2.3 cm cyst in the left lobe of liver. There is fatty inf iltration along the falciform ligament. Spleen: Normal size and attenuation. Gallbladder and biliary system: Normal. Pancreas: Normal. Adrenals: Normal. Kidneys: Normal. GI tract: There is no bowel obstruction, colitis or enteritis. The appendix is normal. . Lymph nodes and mesentery: Normal. Vasculature: Normal.. Bladder: Normal. Reproductive organs: Normal. Peritoneum: There is no ascites or free air, abscess or adenopathy.. Musculoskeletal structures: No significant abnormality. IMPRESSION: There a 2.3 cm cyst in the left lobe of liver. There is fatty infiltration along the falciform ligame nt. There is no bowel obstruction, colitis or enteritis. The appendix is normal. There is no ascites or free air, abscess or adenopathy. This document is electronically signed by Eduard Wiseman MD., Aug 05 2018 10:47:06 PM ET
[2018-08-05] MEDS: PERCOCET 5/325 PO PRN (23:07)
[2018-08-05] MEDS: AMBIEN PO PRN (23:07)
[2018-08-05] MEDS: KEPPRA 1,000 MG in D5W 100 ML IV SCH (23:09)
[2018-08-05] MEDS: NEURONTIN PO SCH (23:09)
[2018-08-05] MEDS: LEVAQUIN PO SCH (23:09)
[2018-08-06] MEDS: NACL 0.9% 1000 ML 1,000 ML IV SCH ×2 (01:52→20:38)
[2018-08-06] MEDS: DILAUDID IV PRN ×7 (01:52→21:50)
[2018-08-06] MEDS: ZOFRAN IV PRN ×3 (05:20→23:11)
[2018-08-06] MEDS: REGLAN IV PRN ×2 (09:21→18:52)
--- NOTE | 2018-08-06 09:30 | Gastroenterology Consultation ---
History of Present Illness - Reason for Consult Consult date: 08/06/18 intractable nausea/vomiting Requesting physician: ZORAN ARREDONDO - History of Present Illness Mr Santos is a 48 yo male who presents with intractable nausea/vomiting and abdominal pain. Pt reports having several days of n/v with associated abd pain; he had what sounds like a syncopal episode (questionable seizures although pt denies). Did not have bowel habit changes/diarrhea. No known sick contacts. reports slight improvement in symptoms today but has not tried po intake. last emesis episode was last night. history of gerd; no new meds, h/o diabetes, or substance/illicit drug use. Past History Past Medical History: GERD, other (sickle cell) Past Surgical History: bowel surgery (prior obstruction s/p ex-lap per pt) Social history: no significant social history Family history: no significant family history Medications and Allergies Allergies Allergy/AdvReac Type Severity Reaction Status Date / Time Penicillins Allergy Hives Verified 08/04/18 14:01 Home Medications Medication Instructions Recorded Confirmed Last Taken Type Gabapentin 100 mg PO QHS PRN 08/05/18 08/05/18 07/30/18 22:00 History High Potency Iron 27 MG 27 mg PO DAILY 08/05/18 08/05/18 08/02/18 10:00 History Protonix 40 mg PO DAILY 08/05/18 08/05/18 Unknown History amLODIPine 5 mg PO DAILY 08/05/18 08/05/18 08/02/18 10:00 History Active Meds: Active Medications Acetaminophen (Tylenol) 650 mg PO Q4H PRN PRN Reason: Pain MILD(1-3)/Fever >100.5/MCKEON Amlodipine Besylate (Norvasc) 5 mg PO QDAY [facility] Last Admin: 08/05/18 16:34 Dose: 5 mg Documented by: Enoxaparin Sodium (Lovenox) 40 mg SUB-Q QDAY@2200 [facility] Last Admin: 08/05/18 21:35 Dose: 40 mg Documented by: Famotidine (Pepcid) 20 mg IV BID [facility] Last Admin: 08/05/18 21:34 Dose: 20 mg Documented by: Ferrous Sulfate (Ferrous Sulfate) 134 mg PO QDAY [facility] Gabapentin (Neurontin) 100 mg PO QHS [facility] Last Admin: 08/05/18 23:09 Dose: 100 mg Documented by: Hydromorphone HCl (Dilaudid) 0.5 mg IV Q3H PRN PRN Reason: Pain , Severe (7-10) Last Admin: 08/06/18 09:19 Dose: 0.5 mg Documented by: Sodium Chloride (Nacl 0.9% 1000 Ml) 1,000 mls @ 75 mls/hr IV DIRECT [facility] Last Admin: 08/06/18 01:52 Dose: 75 mls/hr Documented by: Levetiracetam 1,000 mg/ (Dextrose) 110 mls @ 400 mls/hr IV Q12HR [facility] Last Admin: 08/05/18 23:09 Dose: 400 mls/hr Documented by: Levofloxacin (Levaquin) 750 mg PO Q24HR@2200 [facility] Stop: 08/10/18 22:01 Last Admin: 08/05/18 23:09 Dose: 750 mg Documented by: Metoclopramide HCl (Reglan) 10 mg IV Q6H PRN PRN Reason: Nausea And Vomiting Last Admin: 08/06/18 09:21 Dose: 10 mg Documented by: Ondansetron HCl (Zofran) 4 mg IV Q8H PRN PRN Reason: Nausea And Vomiting Last Admin: 08/06/18 05:20 Dose: 4 mg Documented by: Oxycodone/Acetaminophen (Percocet 5/325) 1 tab PO Q6H PRN PRN Reason: Pain, Moderate (4-6) Last Admin: 08/05/18 23:07 Dose: 1 tab Documented by: Pantoprazole Sodium (Protonix) 40 mg PO DAILY [facility] Promethazine HCl (Phenergan) 25 mg [place] Q6H PRN PRN Reason: Nausea And Vomiting Last Admin: 08/05/18 18:51 Dose: 25 mg Documented by: Sodium Chloride (Sodium Chloride Flush Syringe 10 Ml) 10 ml IV BID [facility] Last Admin: 08/05/18 21:36 Dose: 10 ml Documented by: Sodium Chloride (Sodium Chloride Flush Syringe 10 Ml) 10 ml IV PRN PRN PRN Reason: LINE FLUSH Last Admin: 08/06/18 01:53 Dose: 10 ml Documented by: Zolpidem Tartrate (Ambien) 5 mg PO QHS PRN PRN Reason: Sleep Last Admin: 08/05/18 23:07 Dose: 5 mg Documented by: Reviewed/updated patient's home and current medications Review of Systems - Review of Systems All systems: negative (per HPI) Exam - Constitutional Vital Signs: Temp Pulse Resp BP Pulse Ox 98.3 F 80 18 131/83 97 08/06/18 04:56 08/06/18 04:56 08/06/18 05:45 08/06/18 04:56 08/06/18 04:56 General appearance: no acute distress - EENT Eyes: PERRL, EOM intact ENT: poor dentition - Neck Neck: supple, normal ROM - Respiratory Respiratory effort: normal Respiratory: bilateral: CTA - Cardiovascular Rhythm: regular Heart Sounds: Present: S1 & S2 - Gastrointestinal General gastrointestinal: Present: soft, non-tender, non-distended - Neurologic Neurological: alert and oriented x3 - Psychiatric Psychiatric: appropriate mood/affect - Labs CBC & Chem 7: 08/05/18 09:30 08/05/18 09:30 Lab Results: Laboratory Results - last 24 hr 08/05/18 08/05/18 09:30 09:30 WBC 10.7 RBC 5.57 H Hgb 13.0 Hct 38.7 MCV 70 L MCH 23 L MCHC 34 RDW 23.9 H Plt Count 238 Add Manual Diff Complete Total Counted 100 Seg Neuts % (Manual) 76.0 H Band Neutrophils % 0 Lymphocytes % (Manual) 14.0 Reactive Lymphs % (Man) 0 Monocytes % (Manual) 7.0 Eosinophils % (Manual) 0 Basophils % (Manual) 3.0 H Metamyelocytes % 0 Myelocytes % 0 Promyelocytes % 0 Blast Cells % 0 Nucleated RBC % Not Reportable Seg Neutrophils # Man 8.1 H Band Neutrophils # 0.0 Lymphocytes # (Manual) 1.5 Abs React Lymphs (Man) 0.0 Monocytes # (Manual) 0.7 Eosinophils # (Manual) 0.0 Basophils # (Manual) 0.3 H Metamyelocytes # 0.0 Myelocytes # 0.0 Promyelocytes # 0.0 Blast Cells # 0.0 WBC Morphology Not Reportable Hypersegmented Neuts Not Reportable Hyposegmented Neuts Not Reportable Hypogranular Neuts Not Reportable Smudge Cells Not Reportable Toxic Granulation Not Reportable Toxic Vacuolation Not Reportable Dohle Bodies Not Reportable Pelger-Huet Anomaly Not Reportable Cordelia Rods Not Reportable Platelet Estimate Consistent w auto Clumped Platelets Not Reportable Plt Clumps, EDTA Not Reportable Large Platelets Few Giant Platelets Not Reportable Platelet Satelliting Not Reportable Plt Morphology Comment Not Reportable RBC Morphology Not Reportable Dimorphic RBCs Not Reportable Polychromasia Not Reportable Hypochromasia 1+ Poikilocytosis Not Reportable Anisocytosis 2+ Microcytosis 1+ Macrocytosis Not Reportable Spherocytes Not Reportable Pappenheimer Bodies Not Reportable Sickle Cells Not Reportable Target Cells Not Reportable Tear Drop Cells Not Reportable Ovalocytes Not Reportable Helmet Cells Not Reportable [place] Bodies Not Reportable [place] Rings Not Reportable [place] Cells Not Reportable Bite Cells Not Reportable Crenated Cell Not Reportable Elliptocytes Not Reportable Acanthocytes (Spur) Not Reportable Rouleaux Not Reportable Hemoglobin C Crystals Not Reportable Schistocytes Not Reportable Malaria parasites Not Reportable Oleg Bodies Not Reportable Hem Pathologist Commnt No Sodium 134 L Potassium 3.7 Chloride 98.5 Carbon Dioxide 19 L Anion Gap 20 BUN 6 L Creatinine 0.6 L Estimated GFR > 60 BUN/Creatinine Ratio 10 Glucose 118 H Calcium 8.8 Total Bilirubin 0.70 AST 12 ALT 7 Alkaline Phosphatase 78 Total Protein 8.4 H Albumin 4.5 Albumin/Globulin Ratio 1.2 - Imaging CT Scan: report reviewed Assessment and Plan 1. Nausea/vomiting - ? gastroenteritis episode; no obstructive process or other acute findings on imaging. liver enzymes and lipase normal. clears as tolerated today. EGD tomorrow if symptoms persists to r/o PUD, GOO, or other etiology. if symptoms are better, then can be discharged without EGD with outpt follow-up
[2018-08-06] MEDS ORDERED: PROTONIX 40 MG PO SCH (10:00)
[2018-08-06] MEDS: FERROUS SULFATE PO SCH (11:04)
[2018-08-06] MEDS: PEPCID IV SCH (11:19)
[2018-08-06] MEDS: KEPPRA 1,000 MG in D5W 100 ML IV SCH ×2 (11:19→23:29)
[2018-08-06] MEDS: PROTONIX PO SCH ×2 (11:19→12:15)
[2018-08-06] MEDS: SODIUM CHLORIDE FLUSH SYRINGE 10 ML IV SCH ×2 (11:20→22:04)
[2018-08-06] MEDS: NORVASC PO SCH (12:13)
[2018-08-06] MEDS: PHENERGAN PR PRN (12:29)
--- NOTE | 2018-08-06 14:03 | Magnetic Resonance Report ---
MRI OF THE BRAIN WITHOUT CONTRAST: HISTORY: Seizure PROCEDURE: Multiplanar, multisequence MR imaging of the brain without IV contrast was performed. FINDINGS: Compared to the CT head dated 08/04/18. The brain parenchyma signal intensity and its burton white interface are within normal limits on all sequences. No evidence for acute ischemia, hemorrhage or mass. No chronic infarct or extra-axial fluid collection. The midline structures are central. The basal cisterns are patent. Normal ventricular size. The orbital cavities and sella turcica demonstrate no abnormality. The visualized paranasal sinuses and mastoid air cells are well aerated. IMPRESSION: Unremarkable non-enhanced MRI of the brain.
--- NOTE | 2018-08-06 14:43 | Progress Note ---
Assessment and Plan Assessment and plan: 48-year-old AA male brought in for seizures and persistent vomiting.Patient has been vomiting for couple of days.His fiance noted Seizures c/w tonic clonic movements and followed by unresponsiveness.Apparently had seizures few years ago but not on any anticonvulsants.Seizures were followed b unresponsiveness.Was alert and oriented during my examination. Past Medical History Hypertension: Yes GERD: Yes Sickle Cell trait CTH wnl syncope did not have seizure, passed out after vomiting several times abdominal pain, n/v anti-emetics as needed, ct abdomen and pelvis showed no acute findings GI consulted, for egd tomorrow if symptoms persist HTN (hypertension) Cont antihypertensives GERD (gastroesophageal reflux disease): On PPI's Hypokalemia Supplemented DVT prophylaxis Lovenox and GI prophylaxis History Interval history: Review of systems Constitutional: No fevers, no malaise, no joint pains CVS: No chest pain, no orthopnea, no pedal edema GI: Continues to complain of intractable nausea vomiting and abdominal pain Respiratory: No shortness of breath, no wheezing, no coughing Hospitalist Physical - Physical exam Narrative exam: General.: Moderate distress, nontoxic HEENT: Moist mucous membranes, extraocular muscles intact, no lymphadenopathy Neck: supple Cardiac: S1-S2 heard Lungs: clear to auscultation bilaterally Abdomen: soft , nontender, nondistended, bowel sounds positive Extremities: no edema clubbing or cyanosis Skin: no rash or lesions Neurologic: no gross focal deficits Psych: calm, and cooperative - Constitutional Vitals: Temp Pulse Resp BP Pulse Ox 98.5 F 98 H 20 132/84 98 08/06/18 11:27 08/06/18 11:25 08/06/18 11:25 08/06/18 11:20 08/06/18 11:25 General appearance: Present: no acute distress, well-nourished Results - Labs CBC & Chem 7: 08/05/18 09:30 08/05/18 09:30 Labs: Laboratory Last Values WBC 10.7 K/mm3 (4.5-11.0) 08/05/18 09:30 RBC 5.57 M/mm3 (3.65-5.03) H 08/05/18 09:30 Hgb 13.0 gm/dl (11.8-15.2) 08/05/18 09:30 Hct 38.7 % (35.5-45.6) 08/05/18 09:30 MCV 70 fl (84-94) L 08/05/18 09:30 MCH 23 pg (28-32) L 08/05/18 09:30 MCHC 34 % (32-34) 08/05/18 09:30 RDW 23.9 % (13.2-15.2) H 08/05/18 09:30 Plt Count 238 K/mm3 (140-440) 08/05/18 09:30 Add Manual Diff Complete 08/05/18 09:30 Total Counted 100 08/05/18 09:30 Seg Neuts % (Manual) 76.0 % (40.0-70.0) H 08/05/18 09:30 0 % 08/05/18 09:30 14.0 % (13.4-35.0) 08/05/18 09:30 Reactive Lymphs % (Man) 0 % 08/05/18 09:30 7.0 % (0.0-7.3) 08/05/18 09:30 0 % (0.0-4.3) 08/05/18 09:30 3.0 % (0.0-1.8) H 08/05/18 09:30 0 % 08/05/18 09:30 0 % 08/05/18 09:30 0 % 08/05/18 09:30 0 % 08/05/18 09:30 Nucleated RBC % Not Reportable 08/05/18 09:30 Seg Neutrophils # Man 8.1 K/mm3 (1.8-7.7) H 08/05/18 09:30 Band Neutrophils # 0.0 K/mm3 08/05/18 09:30 1.5 K/mm3 (1.2-5.4) 08/05/18 09:30 Abs React Lymphs (Man) 0.0 K/mm3 08/05/18 09:30 0.7 K/mm3 (0.0-0.8) 08/05/18 09:30 0.0 K/mm3 (0.0-0.4) 08/05/18 09:30 0.3 K/mm3 (0.0-0.1) H 08/05/18 09:30 0.0 K/mm3 08/05/18 09:30 0.0 K/mm3 08/05/18 09:30 0.0 K/mm3 08/05/18 09:30 Blast Cells # 0.0 K/mm3 08/05/18 09:30 WBC Morphology Not Reportable 08/05/18 09:30 Hypersegmented Neuts Not Reportable 08/05/18 09:30 Hyposegmented Neuts Not Reportable 08/05/18 09:30 Hypogranular Neuts Not Reportable 08/05/18 09:30 Not Reportable 08/05/18 09:30 Not Reportable 08/05/18 09:30 Not Reportable 08/05/18 09:30 Not Reportable 08/05/18 09:30 Not Reportable 08/05/18 09:30 Not Reportable 08/05/18 09:30 Consistent w auto 08/05/18 09:30 Not Reportable 08/05/18 09:30 Plt Clumps, EDTA Not Reportable 08/05/18 09:30 Few 08/05/18 09:30 Not Reportable 08/05/18 09:30 Not Reportable 08/05/18 09:30 Plt Morphology Comment Not Reportable 08/05/18 09:30 RBC Morphology Not Reportable 08/05/18 09:30 Dimorphic RBCs Not Reportable 08/05/18 09:30 Not Reportable 08/05/18 09:30 1+ 08/05/18 09:30 Not Reportable 08/05/18 09:30 2+ 08/05/18 09:30 1+ 08/05/18 09:30 Not Reportable 08/05/18 09:30 Not Reportable 08/05/18 09:30 Not Reportable 08/05/18 09:30 Not Reportable 08/05/18 09:30 Not Reportable 08/05/18 09:30 Not Reportable 08/05/18 09:30 Not Reportable 08/05/18 09:30 Not Reportable 08/05/18 09:30 Not Reportable 08/05/18 09:30 Not Reportable 08/05/18 09:30 Not Reportable 08/05/18 09:30 Not Reportable 08/05/18 09:30 Not Reportable 08/05/18 09:30 Not Reportable 08/05/18 09:30 Acanthocytes (Spur) Not Reportable 08/05/18 09:30 Rouleaux Not Reportable 08/05/18 09:30 Not Reportable 08/05/18 09:30 Not Reportable 08/05/18 09:30 Not Reportable 08/05/18 09:30 Not Reportable 08/05/18 09:30 Hem Pathologist Commnt No 08/05/18 09:30 PT 13.8 Sec. (12.2-14.9) 08/04/18 14:24 INR 1.00 (0.87-1.13) 08/04/18 14:24 APTT 31.1 Sec. (24.2-36.6) 08/04/18 14:24 Sodium 134 mmol/L (137-145) L 08/05/18 09:30 Potassium 3.7 mmol/L (3.6-5.0) 08/05/18 09:30 Chloride 98.5 mmol/L (98-107) 08/05/18 09:30 Carbon Dioxide 19 mmol/L (22-30) L 08/05/18 09:30 20 mmol/L 08/05/18 09:30 BUN 6 mg/dL (9-20) L 08/05/18 09:30 0.6 mg/dL (0.8-1.5) L 08/05/18 09:30 Estimated GFR > 60 ml/min 08/05/18 09:30 10 % 08/05/18 09:30 Glucose 118 mg/dL (75-100) H 08/05/18 09:30 4.7 % (4-6) 08/04/18 21:21 Lactic Acid 1.60 mmol/L (0.7-2.0) 08/04/18 16:05 Calcium 8.8 mg/dL (8.4-10.2) 08/05/18 09:30 Magnesium 1.80 mg/dL (1.7-2.3) 08/04/18 14:24 0.70 mg/dL (0.1-1.2) 08/05/18 09:30 < 0.2 mg/dL (0-0.2) 08/04/18 14:24 AST 12 units/L (5-40) 08/05/18 09:30 ALT 7 units/L (7-56) 08/05/18 09:30 78 units/L (35-129) 08/05/18 09:30 77 units/L (55-170) 08/04/18 14:24 CK-MB (CK-2) 1.2 ng/mL (0.0-4.0) 08/04/18 14:24 CK-MB (CK-2) Rel Index 1.5 (0-4) 08/04/18 14:24 < 0.010 ng/mL (0.00-0.029) 08/04/18 14:24 NT-Pro-B Natriuret Pep 89.74 pg/mL (0-450) 08/04/18 14:24 8.4 g/dL (6.3-8.2) H 08/05/18 09:30 4.5 g/dL (3.9-5) 08/05/18 09:30 1.2 % 08/05/18 09:30 Yellow (Yellow) 08/04/18 Unknown Clear (Clear) 08/04/18 Unknown 6.0 (5.0-7.0) 08/04/18 Unknown Ur Specific [place] 1.019 (1.003-1.030) 08/04/18 Unknown 30 mg/dl mg/dL (Negative) 08/04/18 Unknown Neg mg/dL (Negative) 08/04/18 Unknown 80 mg/dL (Negative) 08/04/18 Unknown Mod (Negative) 08/04/18 Unknown Neg (Negative) 08/04/18 Unknown Neg (Negative) 08/04/18 Unknown < 2.0 mg/dL (<2.0) 08/04/18 Unknown Ur Leukocyte Esterase Neg (Negative) 08/04/18 Unknown < 1.0 /HPF (0.0-6.0) 08/04/18 Unknown 2.0 /HPF (0.0-6.0) 08/04/18 Unknown Few /HPF 08/04/18 Unknown Presumptive negative 08/04/18 Unknown Presumptive negative 08/04/18 Unknown Ur Barbiturates Screen Presumptive negative 08/04/18 Unknown Ur Phencyclidine Scrn Presumptive negative 08/04/18 Unknown Ur Amphetamines Screen Presumptive negative 08/04/18 Unknown U Benzodiazepines Scrn Presumptive negative 08/04/18 Unknown Presumptive negative 08/04/18 Unknown U Marijuana (THC) Screen Presumptive negative 08/04/18 Unknown Disclamer 08/04/18 Unknown Active Medications - Current Medications Current Medications: Generic Name Dose Route Start Last Admin Trade Name Freq PRN Reason Stop Dose Admin Acetaminophen 650 mg 08/04/18 21:18 Tylenol PO Q4H PRN Pain MILD(1-3)/Fever >100.5/MCKEON Amlodipine Besylate 5 mg 08/05/18 15:00 08/06/18 12:13 Norvasc PO Not Given QDAY MARTHA Enoxaparin Sodium 40 mg 08/05/18 22:00 08/05/18 21:35 Lovenox SUB-Q 40 mg QDAY@2200 MARTHA Administration Ferrous Sulfate 134 mg 08/06/18 10:00 08/06/18 11:04 Ferrous Sulfate PO Not Given QDAY MARTHA Gabapentin 100 mg 08/05/18 22:00 08/05/18 23:09 Neurontin PO 100 mg QHS MARTHA Administration Hydromorphone HCl 0.5 mg 08/04/18 18:33 08/06/18 12:26 Dilaudid IV 0.5 mg Q3H PRN Administration Pain , Severe (7-10) Sodium Chloride 1,000 mls @ 75 mls/hr 08/04/18 22:00 08/06/18 01:52 Nacl 0.9% 1000 Ml IV 75 mls/hr DIRECT MARTHA Administration Levetiracetam 1,000 mg/ 110 mls @ 400 mls/hr 08/05/18 22:00 08/06/18 11:19 Dextrose IV 400 mls/hr Q12HR MARTHA Administration Levofloxacin 750 mg 08/04/18 22:00 08/05/18 23:09 Levaquin PO 08/10/18 22:01 750 mg Q24HR@2200 MARTHA Administration Metoclopramide HCl 10 mg 08/04/18 18:32 08/06/18 09:21 Reglan IV 10 mg Q6H PRN Administration Nausea And Vomiting Ondansetron HCl 4 mg 08/04/18 21:18 08/06/18 05:20 Zofran IV 4 mg Q8H PRN Administration Nausea And Vomiting Oxycodone/Acetaminophen 1 tab 08/04/18 21:18 08/05/18 23:07 Percocet 5/325 PO 1 tab Q6H PRN Administration Pain, Moderate (4-6) Pantoprazole Sodium 40 mg 08/06/18 10:00 08/06/18 12:15 Protonix PO Not Given DAILY MARTHA Promethazine HCl 25 mg 08/04/18 18:32 08/06/18 12:29 Phenergan MT 25 mg Q6H PRN Administration Nausea And Vomiting Sodium Chloride 10 ml 08/04/18 22:00 08/06/18 11:20 Sodium Chloride Flush Syringe 10 Ml IV 10 ml BID MARTHA Administration Sodium Chloride 10 ml 08/04/18 21:18 08/06/18 01:53 Sodium Chloride Flush Syringe 10 Ml IV 10 ml PRN PRN Administration LINE FLUSH Zolpidem Tartrate 5 mg 08/05/18 22:42 08/05/18 23:07 Ambien PO 5 mg QHS PRN Administration Sleep Nutrition/Malnutrition Assess - Dietary Evaluation Nutrition/Malnutrition Findings: Nutrition Notes Start: 08/05/18 15:16 Freq: Status: Active Protocol: Document 08/05/18 15:17 MARIO (Rec: 08/05/18 15:22 MARIO [email or web address] [email or web address]) Nutrition Notes 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 He reports last PO intake was three days ago. Burn Absent Trauma Absent GI Symptoms Nausea,Vomiting Current % PO Poor (25-49%) #1 Nutrition Diagnosis Altered GI function Etiology gastritis As Evidenced by Signs and Symptoms pt NPO and unable to tolerate PO intake Is patient on ventilator? No Is Patient Ambulatory and/or Out of Bed Yes REE-([facility]. Jeor-ambulatory/OOB) [ [id number] [id number]] Calculation Used for Recommendations [facility] Additional Notes Pro needs 0.8-1g/k-77g/ day Fluid needs 1ml/kcal Nutrition Intervention Change Diet Order: Diet advancement when medically feasible Goal #1 Advance diet to meet nutrient needs Anticipated Discharge Needs: Unable to identify at this time Follow-Up By: 08/07/18 Additional Comments F/U: diet advancement (Day 5 NPO)
[2018-08-06] MEDS: LOVENOX SUB-Q SCH (21:56)
[2018-08-06] MEDS: LEVAQUIN 750MG/150ML 750 MG/150 ML BAG IV SCH (21:59)
[2018-08-06] MEDS: NEURONTIN PO SCH (22:04)
[2018-08-06] MEDS ORDERED: BENADRYL IV ONE (23:55)
[2018-08-07] MEDS: DILAUDID IV PRN ×5 (01:13→23:07)
[2018-08-07] MEDS: PHENERGAN PR PRN (01:17)
[2018-08-07] MEDS: REGLAN IV PRN ×2 (04:36→19:47)
--- NOTE | 2018-08-07 07:19 | Anesthesia Consultation ---
Anesthesia Consult and Med Hx Date of service: 08/07/18 - Airway Anesthetic Teeth Evaluation: Poor (Missing teeth, poor dentition ), Chipped ROM Head & Neck: Adequate Mental/Hyoid Distance: Adequate Mallampati Class: Class II Intubation Access Assessment: Probably Good - Pulmonary Exam CTA: Yes - Cardiac Exam Cardiac Exam: RRR - Pre-Operative Health Status ASA Pre-Surgery Classification: ASA3 Proposed Anesthetic Plan: MAC - Pulmonary Hx Smoking: No Hx Pneumonia: Yes Hx Sleep Apnea: No - Cardiovascular System Hx Hypertension: Yes Hx Heart Murmur: Yes - Central Nervous System Hx Seizures: Yes (new onset seizures on admission) Hx Psychiatric Problems: No - Gastrointestinal Hx Ulcer: Yes Hx Gastroesophageal Reflux Disease: Yes (Vomiting ) - Hematic Hx Anemia: Yes Hx Sickle Cell Disease: Yes (SICKLE CELL TRAIT) - Other Systems Hx Cancer: No
--- NOTE | 2018-08-07 07:20 | Anesthesia Day of Surgery ---
Anesthesia Day of Surgery - Day of Surgery Patient Examined: Yes Patient H&P Reviewed: Yes Patient is NPO: Yes Beta Blockers: No Cardiac Clearance: No Pulmonary Clearance: No
[2018-08-07] MEDS ORDERED: WATER FOR IRRIG STERILE IR ONE (07:23)
[2018-08-07] MEDS ORDERED: WATER FOR IRRIG STERILE ONE (07:24)
[2018-08-07] MEDS: NACL 0.9% 1000 ML 1,000 ML IV SCH ×2 (07:54→16:19)
[2018-08-07] MEDS ORDERED: VERSED ONE (08:31)
[2018-08-07] MEDS ORDERED: DIPRIVAN 10 MG/ML IV ONE ×2 (08:31)
[2018-08-07] MEDS ORDERED: NACL 0.9% 100 ML ONE (08:33)
[2018-08-07] MEDS ORDERED: PEPCID IV ONE ×2 (08:36→09:00)
[2018-08-07] MEDS ORDERED: SUBLIMAZE ONE (08:43)
--- NOTE | 2018-08-07 09:16 | Operative Report ---
Operative Report Operative Report: Esophagogastroduodenoscopy Procedure Note with Biopsies Date of procedure: 08/07/2018 Endoscopist: Bola Cota Pre-op diagnosis: Intractable nausea/vomiting, abdominal pain Post-op diagnosis: Clean based gastric ulcers in antrum, gastritis Anesthesia: MAC Complications: No immediate complications Estimated blood loss: minimal Procedure: After consent was obtained, the patient was placed in the left lateral decubitus position. The fujinon endoscope was inserted into the patient's mouth under direct vision, and advanced into the 2nd portion of the duodenum without difficulty. The patient tolerated the procedure well. The views of the mucosa were good. Patient's vital signs were monitored co ntinuously throughout the procedure. Findings: The esophagus appeared normal. There was evidence of prior surgery in the antrum. There were two clean based ulcers in the antrum/pre-pylorus with surrounding inflammatory mucosa. Biopsies were obtained to evaluate for H pylori. The duodenum appeared normal. Impression: 1. Clean based ulcers in the antrum of the stomach 2. Gastritis. Biopsies obtained 3. Evidence of prior surgery in the distal stomach/antrum Recommendations: -follow-up pathology -avoid nsaid medications -PPI BID daily -diet as tolerated
[2018-08-07] MEDS: NORVASC PO SCH (11:30)
[2018-08-07] MEDS: PERCOCET 5/325 PO PRN (11:30)
[2018-08-07] MEDS: PROTONIX PO SCH ×2 (11:30→23:00)
[2018-08-07] MEDS: KEPPRA 1,000 MG in D5W 100 ML IV SCH ×2 (11:31→23:07)
[2018-08-07] MEDS: FERROUS SULFATE PO SCH (11:32)
[2018-08-07] MEDS: SODIUM CHLORIDE FLUSH SYRINGE 10 ML IV SCH ×2 (11:41→23:01)
--- NOTE | 2018-08-07 13:15 | Progress Note ---
Assessment and Plan Assessment and plan: 48-year-old AA male brought in for syncope and persistent n/v. hx of ex lap and lower stomach surgery Past Medical History Hypertension: Yes GERD: Yes Sickle Cell trait CTH wnl CT a/p no acute findings Gastritis and gastric ulcers abdominal pain, n/v anti-emetics as needed, -sp egd on 08/07, biopsies taken, PPI syncope/transient autonomic imbalance did not have seizure, passed out after vomiting several times Due to vasovagal, dehydration, resolved HTN (hypertension) Cont antihypertensives GERD (gastroesophageal reflux disease): On PPI's Hypokalemia Supplemented DVT prophylaxis Lovenox and GI prophylaxis History Interval history: Review of systems Constitutional: No fevers, no malaise, no joint pains CVS: No chest pain, no orthopnea, no pedal edema GI: Continues to complain of intractable nausea vomiting and abdominal pain Respiratory: No shortness of breath, no wheezing, no coughing Hospitalist Physical - Physical exam Narrative exam: General.: Moderate distress, nontoxic HEENT: Moist mucous membranes, extraocular muscles intact, no lymphadenopathy Neck: supple Cardiac: S1-S2 heard Lungs: clear to auscultation bilaterally Abdomen: soft , nontender, nondistended, bowel sounds positive Extremities: no edema clubbing or cyanosis Skin: no rash or lesions Neurologic: no gross focal deficits Psych: calm, and cooperative - Constitutional Vitals: Temp Pulse Resp BP Pulse Ox 98.5 F 95 H 15 143/92 98 08/07/18 09:19 08/07/18 11:30 08/07/18 09:48 08/07/18 11:30 08/07/18 09:48 General appearance: Present: no acute distress, well-nourished Results - Labs CBC & Chem 7: 08/05/18 09:30 08/05/18 09:30 Labs: Laboratory Last Values WBC 10.7 K/mm3 (4.5-11.0) 08/05/18 09:30 RBC 5.57 M/mm3 (3.65-5.03) H 08/05/18 09:30 Hgb 13.0 gm/dl (11.8-15.2) 08/05/18 09:30 Hct 38.7 % (35.5-45.6) 08/05/18 09:30 MCV 70 fl (84-94) L 08/05/18 09:30 MCH 23 pg (28-32) L 08/05/18 09:30 MCHC 34 % (32-34) 08/05/18 09:30 RDW 23.9 % (13.2-15.2) H 08/05/18 09:30 Plt Count 238 K/mm3 (140-440) 08/05/18 09:30 Add Manual Diff Complete 08/05/18 09:30 Total Counted 100 08/05/18 09:30 Seg Neuts % (Manual) 76.0 % (40.0-70.0) H 08/05/18 09:30 0 % 08/05/18 09:30 14.0 % (13.4-35.0) 08/05/18 09:30 Reactive Lymphs % (Man) 0 % 08/05/18 09:30 7.0 % (0.0-7.3) 08/05/18 09:30 0 % (0.0-4.3) 08/05/18 09:30 3.0 % (0.0-1.8) H 08/05/18 09:30 0 % 08/05/18 09:30 0 % 08/05/18 09:30 0 % 08/05/18 09:30 0 % 08/05/18 09:30 Nucleated RBC % Not Reportable 08/05/18 09:30 Seg Neutrophils # Man 8.1 K/mm3 (1.8-7.7) H 08/05/18 09:30 Band Neutrophils # 0.0 K/mm3 08/05/18 09:30 1.5 K/mm3 (1.2-5.4) 08/05/18 09:30 Abs React Lymphs (Man) 0.0 K/mm3 08/05/18 09:30 0.7 K/mm3 (0.0-0.8) 08/05/18 09:30 0.0 K/mm3 (0.0-0.4) 08/05/18 09:30 0.3 K/mm3 (0.0-0.1) H 08/05/18 09:30 0.0 K/mm3 08/05/18 09:30 0.0 K/mm3 08/05/18 09:30 0.0 K/mm3 08/05/18 09:30 Blast Cells # 0.0 K/mm3 08/05/18 09:30 WBC Morphology Not Reportable 08/05/18 09:30 Hypersegmented Neuts Not Reportable 08/05/18 09:30 Hyposegmented Neuts Not Reportable 08/05/18 09:30 Hypogranular Neuts Not Reportable 08/05/18 09:30 Not Reportable 08/05/18 09:30 Not Reportable 08/05/18 09:30 Not Reportable 08/05/18 09:30 Not Reportable 08/05/18 09:30 Not Reportable 08/05/18 09:30 Not Reportable 08/05/18 09:30 Consistent w auto 08/05/18 09:30 Not Reportable 08/05/18 09:30 Plt Clumps, EDTA Not Reportable 08/05/18 09:30 Few 08/05/18 09:30 Not Reportable 08/05/18 09:30 Not Reportable 08/05/18 09:30 Plt Morphology Comment Not Reportable 08/05/18 09:30 RBC Morphology Not Reportable 08/05/18 09:30 Dimorphic RBCs Not Reportable 08/05/18 09:30 Not Reportable 08/05/18 09:30 1+ 08/05/18 09:30 Not Reportable 08/05/18 09:30 2+ 08/05/18 09:30 1+ 08/05/18 09:30 Not Reportable 08/05/18 09:30 Not Reportable 08/05/18 09:30 Not Reportable 08/05/18 09:30 Not Reportable 08/05/18 09:30 Not Reportable 08/05/18 09:30 Not Reportable 08/05/18 09:30 Not Reportable 08/05/18 09:30 Not Reportable 08/05/18 09:30 Not Reportable 08/05/18 09:30 Not Reportable 08/05/18 09:30 Not Reportable 08/05/18 09:30 Not Reportable 08/05/18 09:30 Not Reportable 08/05/18 09:30 Not Reportable 08/05/18 09:30 Acanthocytes (Spur) Not Reportable 08/05/18 09:30 Rouleaux Not Reportable 08/05/18 09:30 Not Reportable 08/05/18 09:30 Not Reportable 08/05/18 09:30 Not Reportable 08/05/18 09:30 Not Reportable 08/05/18 09:30 Hem Pathologist Commnt No 08/05/18 09:30 PT 13.8 Sec. (12.2-14.9) 08/04/18 14:24 INR 1.00 (0.87-1.13) 08/04/18 14:24 APTT 31.1 Sec. (24.2-36.6) 08/04/18 14:24 Sodium 134 mmol/L (137-145) L 08/05/18 09:30 Potassium 3.7 mmol/L (3.6-5.0) 08/05/18 09:30 Chloride 98.5 mmol/L (98-107) 08/05/18 09:30 Carbon Dioxide 19 mmol/L (22-30) L 08/05/18 09:30 20 mmol/L 08/05/18 09:30 BUN 6 mg/dL (9-20) L 08/05/18 09:30 0.6 mg/dL (0.8-1.5) L 08/05/18 09:30 Estimated GFR > 60 ml/min 08/05/18 09:30 10 % 08/05/18 09:30 Glucose 118 mg/dL (75-100) H 08/05/18 09:30 4.7 % (4-6) 08/04/18 21:21 Lactic Acid 1.60 mmol/L (0.7-2.0) 08/04/18 16:05 Calcium 8.8 mg/dL (8.4-10.2) 08/05/18 09:30 Magnesium 1.80 mg/dL (1.7-2.3) 08/04/18 14:24 0.70 mg/dL (0.1-1.2) 08/05/18 09:30 < 0.2 mg/dL (0-0.2) 08/04/18 14:24 AST 12 units/L (5-40) 08/05/18 09:30 ALT 7 units/L (7-56) 08/05/18 09:30 78 units/L (35-129) 08/05/18 09:30 77 units/L (55-170) 08/04/18 14:24 CK-MB (CK-2) 1.2 ng/mL (0.0-4.0) 08/04/18 14:24 CK-MB (CK-2) Rel Index 1.5 (0-4) 08/04/18 14:24 < 0.010 ng/mL (0.00-0.029) 08/04/18 14:24 NT-Pro-B Natriuret Pep 89.74 pg/mL (0-450) 08/04/18 14:24 8.4 g/dL (6.3-8.2) H 08/05/18 09:30 4.5 g/dL (3.9-5) 08/05/18 09:30 1.2 % 08/05/18 09:30 Yellow (Yellow) 08/04/18 Unknown Clear (Clear) 08/04/18 Unknown 6.0 (5.0-7.0) 08/04/18 Unknown Ur Specific [place] 1.019 (1.003-1.030) 08/04/18 Unknown 30 mg/dl mg/dL (Negative) 08/04/18 Unknown Neg mg/dL (Negative) 08/04/18 Unknown 80 mg/dL (Negative) 08/04/18 Unknown Mod (Negative) 08/04/18 Unknown Neg (Negative) 08/04/18 Unknown Neg (Negative) 08/04/18 Unknown < 2.0 mg/dL (<2.0) 08/04/18 Unknown Ur Leukocyte Esterase Neg (Negative) 08/04/18 Unknown < 1.0 /HPF (0.0-6.0) 08/04/18 Unknown 2.0 /HPF (0.0-6.0) 08/04/18 Unknown Few /HPF 08/04/18 Unknown Presumptive negative 08/04/18 Unknown Presumptive negative 08/04/18 Unknown Ur Barbiturates Screen Presumptive negative 08/04/18 Unknown Ur Phencyclidine Scrn Presumptive negative 08/04/18 Unknown Ur Amphetamines Screen Presumptive negative 08/04/18 Unknown U Benzodiazepines Scrn Presumptive negative 08/04/18 Unknown Presumptive negative 08/04/18 Unknown U Marijuana (THC) Screen Presumptive negative 08/04/18 Unknown Disclamer 08/04/18 Unknown Active Medications - Current Medications Current Medications: Generic Name Dose Route Start Last Admin Trade Name Freq PRN Reason Stop Dose Admin Acetaminophen 650 mg 08/04/18 21:18 Tylenol PO Q4H PRN Pain MILD(1-3)/Fever >100.5/MCKEON Amlodipine Besylate 5 mg 08/05/18 15:00 08/07/18 11:30 Norvasc PO 5 mg QDAY MARTHA Administration Enoxaparin Sodium 40 mg 08/05/18 22:00 08/06/18 21:56 Lovenox SUB-Q 40 mg QDAY@2200 MARTHA Administration Ferrous Sulfate 134 mg 08/06/18 10:00 08/07/18 11:32 Ferrous Sulfate PO 134 mg QDAY MARTHA Administration Gabapentin 100 mg 08/05/18 22:00 08/06/18 22:04 Neurontin PO Not Given QHS MARTHA Hydromorphone HCl 0.5 mg 08/04/18 18:33 08/07/18 04:35 Dilaudid IV 0.5 mg Q3H PRN Administration Pain , Severe (7-10) Sodium Chloride 1,000 mls @ 75 mls/hr 08/04/18 22:00 08/06/18 20:38 Nacl 0.9% 1000 Ml IV 75 mls/hr DIRECT MARTHA Administration Levetiracetam 1,000 mg/ 110 mls @ 400 mls/hr 08/05/18 22:00 08/07/18 11:31 Dextrose IV 400 mls/hr Q12HR MARTHA Administration Levofloxacin/Dextrose 750 mg in 150 mls @ 100 mls/hr 08/06/18 22:00 08/06/18 21:59 Levaquin 750mg/150ml IV 100 mls/hr Q24HR@2200 MARTHA Administration Sodium Chloride 1,000 mls @ 50 mls/hr 08/07/18 08:00 08/07/18 07:54 Nacl 0.9% 1000 Ml IV 08/08/18 07:59 50 mls/hr DIRECT MARTHA Administration Metoclopramide HCl 10 mg 08/04/18 18:32 08/07/18 04:36 Reglan IV 10 mg Q6H PRN Administration Nausea And Vomiting Ondansetron HCl 4 mg 08/04/18 21:18 08/06/18 23:11 Zofran IV 4 mg Q8H PRN Administration Nausea And Vomiting Oxycodone/Acetaminophen 1 tab 08/04/18 21:18 08/07/18 11:30 Percocet 5/325 PO 1 tab Q6H PRN Administration Pain, Moderate (4-6) Pantoprazole Sodium 40 mg 08/06/18 10:00 08/07/18 11:30 Protonix PO 40 mg DAILY MARTHA Administration Promethazine HCl 25 mg 08/04/18 18:32 08/07/18 01:17 Phenergan DE 25 mg Q6H PRN Administration Nausea And Vomiting Sodium Chloride 10 ml 08/04/18 22:00 08/07/18 11:41 Sodium Chloride Flush Syringe 10 Ml IV 10 ml BID MARTHA Administration Sodium Chloride 10 ml 08/04/18 21:18 08/06/18 01:53 Sodium Chloride Flush Syringe 10 Ml IV 10 ml PRN PRN Administration LINE FLUSH Zolpidem Tartrate 5 mg 08/05/18 22:42 08/05/18 23:07 Ambien PO 5 mg QHS PRN Administration Sleep Nutrition/Malnutrition Assess - Dietary Evaluation Nutrition/Malnutrition Findings: Nutrition Notes Start: 08/05/18 15:16 Freq: Status: Active Protocol: Document 08/05/18 15:17 MARIO (Rec: 08/05/18 15:22 [facility] [id number] [email or web address]) Nutrition Notes Need for Assessment generated from: huc Initial or Follow up Assessment Current Diagnosis Hypertension Other Pertinent Diagnosis Acute gastritis, new onset seizures, GERD Current Diet NPO Labs/Tests Reviewed Pertinent Medications Reviewed Height 5 ft 10 in Weight 76.657 kg Usual Body Weight 77.27 kg [place] Body Weight (kg) 75.45 BMI 24.2 Intake Prior to Admission Poor Weight Status Appropriate Subjective/Other Information Pt screened for malnutrition risk (wt loss, poor appetite). He reports last PO intake was three days ago. Burn Absent Trauma Absent GI Symptoms Nausea,Vomiting Current % PO Poor (25-49%) #1 Nutrition Diagnosis Altered GI function Etiology gastritis As Evidenced by Signs and Symptoms pt NPO and unable to tolerate PO intake Is patient on ventilator? No Is Patient Ambulatory and/or Out of Bed Yes REE-([place]-St. Jeor-ambulatory/OOB) [ [id number] [id number]] Calculation Used for Recommendations [place]-St Jeor Additional Notes Pro needs 0.8-1g/k-77g/ day Fluid needs 1ml/kcal Nutrition Intervention Change Diet Order: Diet advancement when medically feasible Goal #1 Advance diet to meet nutrient needs Anticipated Discharge Needs: Unable to identify at this time Follow-Up By: 08/07/18 Additional Comments F/U: diet advancement (Day 5 NPO)
[2018-08-07] MEDS: ZOFRAN IV PRN (13:34)
[2018-08-07] MEDS: LEVAQUIN 750MG/150ML 750 MG/150 ML BAG IV SCH (23:00)
[2018-08-07] MEDS: NEURONTIN PO SCH (23:00)
[2018-08-07] MEDS: LOVENOX SUB-Q SCH (23:00)
[2018-08-07] MEDS: AMBIEN PO PRN (23:13)
[2018-08-08] MEDS: DILAUDID IV PRN ×5 (06:09→22:30)
[2018-08-08] MEDS: NACL 0.9% 1000 ML 1,000 ML IV SCH ×2 (06:11→18:46)
[2018-08-08] MEDS: REGLAN IV PRN ×2 (08:32→14:32)
[2018-08-08] MEDS: PERCOCET 5/325 PO PRN (08:33)
--- NOTE | 2018-08-08 09:13 | Progress Note ---
Assessment and Plan - Patient Problems (1) Acute gastritis Current Visit: Yes Status: Acute Qualifiers: Gastritis type: unspecified gastritis Plan to address problem: IV fluids and PO Protonix Has Antral ulcers (2) New onset seizure Current Visit: Yes Status: Acute Plan to address problem: History c/w syncope Will discontinue Keppra (3) HTN (hypertension) Current Visit: Yes Status: Chronic Qualifiers: Hypertension type: essential hypertension Qualified Code(s): I10 - Essential (primary) hypertension Plan to address problem: Cont antihypertensives (4) GERD (gastroesophageal reflux disease) Current Visit: Yes Status: Chronic Qualifiers: Esophagitis presence: with esophagitis Qualified Code(s): K21.0 - Gastro- esophageal reflux disease with esophagitis Plan to address problem: On PPI's Has Antral ulcers (5) Hypokalemia Current Visit: Yes Status: Acute Plan to address problem: Supplemented (6) DVT prophylaxis Current Visit: Yes Status: Acute Plan to address problem: Lovenox and GI prophylaxis Subjective Date of service: 08/08/18 Principal diagnosis: Syncope and persistent vomiting Interval history: Vomited 3 times last night Had EGD on 08/07 which showed Antral ulcers. On clears Objective - Constitutional Vitals: Vital Signs - 12hr 08/08/18 08/08/18 00:01 05:57 Temperature 98.2 F 98.5 F Pulse Rate 83 92 H Respiratory 18 16 Rate Blood Pressure 121/82 112/80 O2 Sat by Pulse 98 97 Oximetry General appearance: Present: no acute distress, well-nourished - EENT Eyes: PERRL, EOM intact ENT: hearing intact, clear oral mucosa Ears: bilateral: normal - Neck Neck: supple, normal ROM - Respiratory Respiratory effort: normal Respiratory: bilateral: CTA - Breasts Breasts: normal - Cardiovascular Rhythm: regular Heart Sounds: Present: S1 & S2. Absent: gallop, rub Extremities: no ischemia, pulses intact, No edema, normal color, Full ROM - Gastrointestinal General gastrointestinal: Present: soft, non-tender, non-distended, normal bowel sounds - Genitourinary Male genitourinary: normal - Integumentary Integumentary: clear, warm, dry - Musculoskeletal Musculoskeletal: 1, strength equal bilaterally - Neurologic Neurologic: moves all extremities - Psychiatric Psychiatric: memory intact, appropriate mood/affect, intact judgment & insight - Labs CBC & Chem 7: 08/05/18 09:30 08/05/18 09:30
[2018-08-08] MEDS: NORVASC PO SCH (09:37)
[2018-08-08] MEDS: PROTONIX PO SCH ×2 (09:40→21:30)
[2018-08-08] MEDS: FERROUS SULFATE PO SCH (09:41)
[2018-08-08] MEDS: SODIUM CHLORIDE FLUSH SYRINGE 10 ML IV SCH ×2 (09:45→21:32)
[2018-08-08] MEDS ORDERED: NACL 0.9% 1000 ML 1,000 ML IV SCH (10:00)
[2018-08-08] MEDS: KEPPRA 1,000 MG in D5W 100 ML IV SCH ×2 (10:05→23:29)
--- NOTE | 2018-08-08 10:37 | Gastroenterology Progress Note ---
<MAUREEN LONGORIA - Last Filed: 08/08/18 10:47> Assessment and Plan 1.N/V 2.abdominal pain 3.H/o prior bowel obstruction (s/p surgery) -afebrile -WBC, H/H, and LFTs WNL -abd CT and KUB- no obstructive process or other acute findings -s/p EGD yesterday that showed clean based ulcers in the antrum of the stomach, gastritis, and evidence of prior surgery in the distal stomach/antrum (no GOO) -bx results pending-f/u in clinic -clinically, patient is stable. Reports continued mild upper abdominal discomfort and nausea with multiple episodes of vomiting overnight but none so far this am. No signs of bleeding. -continue clears liquids for now-advance as tolerated -continue PPI BID -start on carafate -avoid NSAIDs -continue supportive care -once tolerating PO, okay to be d/c per GI standpoint on current medications with f/u in clinic ~2 weeks Subjective Date of service: 08/08/18 Principal diagnosis: N/V Interval history: Patient resting in bed w/o acute distress. Reports continued mild abdominal discomfort and nausea. No vomiting this am but had multiple episodes overnight. Objective - Constitutional Vitals: Temp Pulse Resp BP Pulse Ox 98.5 F 97 H 16 105/73 97 08/08/18 05:57 08/08/18 09:37 08/08/18 05:57 08/08/18 09:37 08/08/18 05:57 General appearance: no acute distress - Respiratory Respiratory: bilateral: CTA - Cardiovascular Rhythm: regular - Gastrointestinal General gastrointestinal: Present: soft, non-tender, non-distended, normal bowel sounds - Neurologic Neurological: alert and oriented x3 - Labs CBC & Chem 7: 08/05/18 09:30 08/05/18 09:30 <CARLOS OLIVAREZ - Last Filed: 08/08/18 12:43> Assessment and Plan Pt seen and examined. Agree with note above. tolerating clears today, less abd pain; had emesis last night but improved today so far. advance diet as tolerated. hopefully d/c tomorrow if tolerating po without emesis. Objective - Constitutional Vitals: Temp Pulse Resp BP Pulse Ox 98.6 F 77 19 141/94 98 08/08/18 11:25 08/08/18 11:25 08/08/18 11:25 08/08/18 11:25 08/08/18 11:25 - Labs CBC & Chem 7: 08/05/18 09:30 08/05/18 09:30
[2018-08-08] MEDS: CARAFATE PO SCH ×3 (14:32→21:30)
[2018-08-08] MEDS: AMBIEN PO PRN (21:30)
[2018-08-08] MEDS: LOVENOX SUB-Q SCH (21:31)
[2018-08-08] MEDS: NEURONTIN PO SCH (21:31)
[2018-08-08] MEDS: ZOFRAN IV PRN (21:31)
[2018-08-08] MEDS: LEVAQUIN 750MG/150ML 750 MG/150 ML BAG IV SCH (21:31)
[2018-08-09] MEDS: DILAUDID IV PRN ×3 (06:00→13:59)
[2018-08-09] MEDS: ZOFRAN IV PRN (06:00)
[2018-08-09 07:01] LABS: Hematocrit 40.1 % (35.5-45.6); Mean Corpuscular HGB Conc 32 % (32-34); Mean Corpuscular Volume 71 fl (84-94); Platelet Count 236 K/mm3 (140-440); Red Blood Count 5.66 M/mm3 (3.65-5.03)
[2018-08-09 07:20] LABS: Alanine Aminotransferase 5 units/L (7-56); Albumin 3.9 g/dL (3.9-5); BUN/Creatinine Ratio 14; Blood Urea Nitrogen 7 mg/dL (9-20); Calcium 8.8 mg/dL (8.4-10.2); Hemolysis Index 1
[2018-08-09 07:28] LABS: Red Cell Distribution Width 23.8 % (13.2-15.2)
[2018-08-09] MEDS ORDERED: K-DUR PO ONE ×2 (07:45→12:00)
[2018-08-09 08:10] LABS: Anisocytosis 2+; Basophils % (Manual) 0 % (0.0-1.8); Total Cells Counted 100
[2018-08-09 08:11] LABS: Ovalocytes Few; Platelet Estimate Consistent w Auto; Poikilocytosis Few; Target Cells Few
[2018-08-09] MEDS: NACL 0.9% 1000 ML 1,000 ML IV SCH (08:45)
[2018-08-09] MEDS: CARAFATE PO SCH ×2 (08:45→14:00)
[2018-08-09] MEDS: PROTONIX PO SCH (09:58)
[2018-08-09] MEDS: NORVASC PO SCH (09:58)
[2018-08-09] MEDS: FERROUS SULFATE PO SCH (09:59)
[2018-08-09] MEDS: SODIUM CHLORIDE FLUSH SYRINGE 10 ML IV SCH (09:59)
[2018-08-09] MEDS ORDERED: KEPPRA PO SCH (10:00)
[2018-08-09] MEDS: REGLAN IV PRN (10:09)
--- NOTE | 2018-08-09 10:48 | Gastroenterology Progress Note ---
<MAUREEN LONGORIA - Last Filed: 08/09/18 11:28> Assessment and Plan 1.N/V 2.abdominal pain 3.H/o prior bowel obstruction (s/p surgery) -afebrile -WBC, H/H, and LFTs WNL -abd CT and KUB- no obstructive process or other acute findings -s/p EGD that showed clean based ulcers in the antrum of the stomach, gastritis, and evidence of prior surgery in the distal stomach/antrum (no GOO) -bx results pending-f/u in clinic -clinically, patient is stable. Reports feeling better with abd pain improving. Tolerating liquids. No signs of bleeding. -advance diet to GI soft -continue PPI BID and carafate -avoid NSAIDs -continue supportive care -patient okay to be d/c per GI standpoint on current medications with f/u in clinic ~2 weeks -will sign off, please call if needed Subjective Date of service: 08/09/18 Principal diagnosis: N/V Interval history: No acute distress. Reports feeling better with abd pain improving. Tolerating full liquids. Objective - Constitutional Vitals: Temp Pulse Resp BP Pulse Ox 98.7 F 89 18 141/87 98 08/09/18 05:57 08/09/18 05:57 08/09/18 06:30 08/09/18 05:57 08/09/18 05:57 General appearance: no acute distress - Respiratory Respiratory: bilateral: CTA - Cardiovascular Rhythm: regular - Gastrointestinal General gastrointestinal: Present: soft, non-tender, non-distended, normal bowel sounds - Neurologic Neurological: alert and oriented x3 - Labs CBC & Chem 7: 08/09/18 06:26 08/09/18 06:26 Labs: Laboratory Results - last 24 hr 08/09/18 08/09/18 06:26 06:26 WBC 5.5 RBC 5.66 H Hgb 13.0 Hct 40.1 MCV 71 L MCH 23 L MCHC 32 RDW 23.8 H Plt Count 236 Add Manual Diff Complete Total Counted 100 Seg Neuts % (Manual) 60.0 Band Neutrophils % 0 Lymphocytes % (Manual) 26.0 Reactive Lymphs % (Man) 0 Monocytes % (Manual) 12.0 H Eosinophils % (Manual) 2.0 Basophils % (Manual) 0 Metamyelocytes % 0 Myelocytes % 0 Promyelocytes % 0 Blast Cells % 0 Nucleated RBC % Not Reportable Seg Neutrophils # Man 3.3 Band Neutrophils # 0.0 Lymphocytes # (Manual) 1.4 Abs React Lymphs (Man) 0.0 Monocytes # (Manual) 0.7 Eosinophils # (Manual) 0.1 Basophils # (Manual) 0.0 Metamyelocytes # 0.0 Myelocytes # 0.0 Promyelocytes # 0.0 Blast Cells # 0.0 WBC Morphology Not Reportable Hypersegmented Neuts Not Reportable Hyposegmented Neuts Not Reportable Hypogranular Neuts Not Reportable Smudge Cells Not Reportable Toxic Granulation Not Reportable Toxic Vacuolation Not Reportable Dohle Bodies Not Reportable Pelger-Huet Anomaly Not Reportable Cordelia Rods Not Reportable Platelet Estimate Consistent w auto Clumped Platelets Not Reportable Plt Clumps, EDTA Not Reportable Large Platelets Not Reportable Giant Platelets Not Reportable Platelet Satelliting Not Reportable Plt Morphology Comment Not Reportable RBC Morphology Not Reportable Dimorphic RBCs Not Reportable Polychromasia Not Reportable Hypochromasia Not Reportable Poikilocytosis Few Anisocytosis 2+ Microcytosis 1+ Macrocytosis Not Reportable Spherocytes Not Reportable Pappenheimer Bodies Not Reportable Sickle Cells Not Reportable Target Cells Few Tear Drop Cells Not Reportable Ovalocytes Few Helmet Cells Not Reportable [place] Bodies Not Reportable [place] Rings Not Reportable [place] Cells Not Reportable Bite Cells Not Reportable Crenated Cell Not Reportable Elliptocytes Not Reportable Acanthocytes (Spur) Not Reportable Rouleaux Not Reportable Hemoglobin C Crystals Not Reportable Schistocytes Not Reportable Malaria parasites Not Reportable Oleg Bodies Not Reportable Hem Pathologist Commnt No Sodium 138 Potassium 2.9 L* D Chloride 97.9 L Carbon Dioxide 26 D Anion Gap 17 BUN 7 L Creatinine 0.5 L Estimated GFR > 60 BUN/Creatinine Ratio 14 Glucose 107 H Calcium 8.8 Total Bilirubin 0.70 AST 9 ALT 5 L Alkaline Phosphatase 61 Total Protein 7.2 Albumin 3.9 Albumin/Globulin Ratio 1.2 <CARLOS OLIVAREZ - Last Filed: 08/09/18 16:28> Assessment and Plan Pt seen and examined. Agree with note above. Objective - Constitutional Vitals: Temp Pulse Resp BP Pulse Ox 98.6 F 90 18 115/79 97 08/09/18 12:33 08/09/18 12:33 08/09/18 12:33 08/09/18 12:33 08/09/18 12:33 - Labs CBC & Chem 7: 08/09/18 06:26 08/09/18 06:26 Labs: Laboratory Results - last 24 hr 08/09/18 08/09/18 06:26 06:26 WBC 5.5 RBC 5.66 H Hgb 13.0 Hct 40.1 MCV 71 L MCH 23 L MCHC 32 RDW 23.8 H Plt Count 236 Add Manual Diff Complete Total Counted 100 Seg Neuts % (Manual) 60.0 Band Neutrophils % 0 Lymphocytes % (Manual) 26.0 Reactive Lymphs % (Man) 0 Monocytes % (Manual) 12.0 H Eosinophils % (Manual) 2.0 Basophils % (Manual) 0 Metamyelocytes % 0 Myelocytes % 0 Promyelocytes % 0 Blast Cells % 0 Nucleated RBC % Not Reportable Seg Neutrophils # Man 3.3 Band Neutrophils # 0.0 Lymphocytes # (Manual) 1.4 Abs React Lymphs (Man) 0.0 Monocytes # (Manual) 0.7 Eosinophils # (Manual) 0.1 Basophils # (Manual) 0.0 Metamyelocytes # 0.0 Myelocytes # 0.0 Promyelocytes # 0.0 Blast Cells # 0.0 WBC Morphology Not Reportable Hypersegmented Neuts Not Reportable Hyposegmented Neuts Not Reportable Hypogranular Neuts Not Reportable Smudge Cells Not Reportable Toxic Granulation Not Reportable Toxic Vacuolation Not Reportable Dohle Bodies Not Reportable Pelger-Huet Anomaly Not Reportable Cordelia Rods Not Reportable Platelet Estimate Consistent w auto Clumped Platelets Not Reportable Plt Clumps, EDTA Not Reportable Large Platelets Not Reportable Giant Platelets Not Reportable Platelet Satelliting Not Reportable Plt Morphology Comment Not Reportable RBC Morphology Not Reportable Dimorphic RBCs Not Reportable Polychromasia Not Reportable Hypochromasia Not Reportable Poikilocytosis Few Anisocytosis 2+ Microcytosis 1+ Macrocytosis Not Reportable Spherocytes Not Reportable Pappenheimer Bodies Not Reportable Sickle Cells Not Reportable Target Cells Few Tear Drop Cells Not Reportable Ovalocytes Few Helmet Cells Not Reportable [place] Bodies Not Reportable [place] Rings Not Reportable [place] Cells Not Reportable Bite Cells Not Reportable Crenated Cell Not Reportable Elliptocytes Not Reportable Acanthocytes (Spur) Not Reportable Rouleaux Not Reportable Hemoglobin C Crystals Not Reportable Schistocytes Not Reportable Malaria parasites Not Reportable Oleg Bodies Not Reportable Hem Pathologist Commnt No Sodium 138 Potassium 2.9 L* D Chloride 97.9 L Carbon Dioxide 26 D Anion Gap 17 BUN 7 L Creatinine 0.5 L Estimated GFR > 60 BUN/Creatinine Ratio 14 Glucose 107 H Calcium 8.8 Total Bilirubin 0.70 AST 9 ALT 5 L Alkaline Phosphatase 61 Total Protein 7.2 Albumin 3.9 Albumin/Globulin Ratio 1.2
[2018-08-09 12:48] VITALS: BP 115/79
--- NOTE | 2018-08-09 14:29 | Discharge Summary ---
Providers - Providers Date of Admission: 08/04/18 16:25 Date of discharge: 08/09/18 Attending physician: ALBERTINA FRANKLIN 08/05/18 14:13 Consult to Physician [CONS] Routine Comment: Consulting Provider: CLINT ROJAS Physician Instructions: Reason For Exam: intractable n/v [facility] Condition: Stable Pertinent studies: EGD ---Antral ulcers Hospital course: (1) Acute gastritis Current Visit: Yes Status: Acute Qualifiers: Gastritis type: unspecified gastritis Plan to address problem: IV fluids and PO Protonix and Carafate Has Antral ulcers Patient to avoid Goody powders BC powders and NSAID's (2) New onset seizure Current Visit: Yes Status: Acute Plan to address problem: History c/w syncope Will discontinue Keppra No need for seizure medication (3) HTN (hypertension) Current Visit: Yes Status: Chronic Qualifiers: Hypertension type: essential hypertension Qualified Code(s): I10 - Essential (primary) hypertension Plan to address problem: Cont antihypertensives (4) GERD (gastroesophageal reflux disease) Current Visit: Yes Status: Chronic Qualifiers: Esophagitis presence: with esophagitis Qualified Code(s): K21.0 - Gastro- esophageal reflux disease with esophagitis Plan to address problem: On PPI's Has Antral ulcers Patient to be discharged on Protonix and Carafate (5) Hypokalemia Current Visit: Yes Status: Acute Plan to address problem: Supplemented Disposition: DC-01 TO HOME OR SELFCARE - Discharge Diagnoses (1) Acute gastritis Status: Acute Qualifiers: Gastritis type: unspecified gastritis (2) New onset seizure Status: Acute (3) HTN (hypertension) Status: Chronic Qualifiers: Hypertension type: essential hypertension Qualified Code(s): I10 - Essential (primary) hypertension (4) GERD (gastroesophageal reflux disease) Status: Chronic Qualifiers: Esophagitis presence: with esophagitis Qualified Code(s): K21.0 - Gastro- esophageal reflux disease with esophagitis (5) Hypokalemia Status: Acute (6) DVT prophylaxis Status: Acute Core Measure Documentation - Palliative Care Palliative Care/ Comfort Measures: Not Applicable - Core Measures Any of the following diagnoses?: none Exam - Constitutional Vitals: Temp Pulse Resp BP Pulse Ox 98.6 F 90 18 115/79 97 08/09/18 12:33 08/09/18 12:33 08/09/18 12:33 08/09/18 12:33 08/09/18 12:33 General appearance: Present: no acute distress, well-nourished - EENT Eyes: Present: PERRL ENT: hearing intact, clear oral mucosa - Neck Neck: Present: supple, normal ROM - Respiratory Respiratory effort: normal Respiratory: bilateral: CTA - Cardiovascular Heart rate: 78 Rhythm: regular (78) Heart Sounds: Present: S1 & S2. Absent: rub, click - Extremities Extremities: no ischemia, pulses intact, pulses symmetrical, No edema Peripheral Pulses: within normal limits - Abdominal General gastrointestinal: Present: soft, non-tender, non-distended, normal bowel sounds Male genitourinary: Present: normal - Rectal Rectal Exam: deferred - Integumentary Integumentary: Present: clear, warm, dry - Musculoskeletal Musculoskeletal: gait normal, strength equal bilaterally - Psychiatric Psychiatric: appropriate mood/affect, intact judgment & insight - Neurologic Neurologic: CNII-XII intact, moves all extremities Plan Activity: no restrictions Diet: low salt Follow up with: NALINI RAMOS MD [Primary Care Provider] - 3-5 Days WYATT HICKS MD [Staff Physician] - 7 Days
== END 2018-08-09 17:10 | disposition home or self-care (01) | DRG 392 ==
LOC: ED 13:50 → 3A 16:25
PROVIDERS: ADMIT Internal Medicine; ATTEND Internal Medicine
PROC: 0DB78ZX Excision of Stomach, Pylorus, Via Natural or Artificial Opening Endoscopic, Diagnostic (ICD-10-PCS; principal; 2018-08-07)
DX: K29.00 Acute gastritis without bleeding (principal); I45.2 Bifascicular block; R55 Syncope and collapse; E87.6 Hypokalemia; I10 Essential (primary) hypertension; K21.0 Gastro-esophageal reflux disease with esophagitis; G90.8 Other disorders of autonomic nervous system; E86.0 Dehydration; Z87.01 Personal history of pneumonia (recurrent); Z88.0 Allergy status to penicillin
CPT/HCPCS: 36415; 70450; 70551; 71045; 74018; 74177; 80048; 80053; 80076; 80307; 81001; 82140; 82550; 82553; 83036; 83735; 83880; 84484; 85007; 85025; 85610; 85730; 87040; 88305; 88342; 93005; 93010; 96374; 96375; 99285; G0378; C9113; J1170; J1200; J1650; J1953; J1956; J2250; J2405; J2704; J2765; J3010; J3475; J3480; J7030; Q9967

== ENCOUNTER 2019-06-21 23:31 | Emergency (ER) | payer BC ==
[2019-06-22] MEDS ORDERED: IPRATROPIUM/ALBUTEROL SULFATE 3 ML AMPUL.NEB IH ONE (01:06)
[2019-06-22] MEDS ORDERED: methylPREDNISolone Sod Succinate 125 MG/2 ML INJ IV ONE (01:06)
[2019-06-22] MEDS ORDERED: SODIUM CHLORIDE 0.9% 1000 ML 1,000 ML IV ONE (01:06)
[2019-06-22] MEDS ORDERED: ACETAMINOPHEN 500 MG TAB PO ONE (01:06)
--- NOTE | 2019-06-22 01:36 | XRay Report ---
CHEST 1 VIEW 06/22/2019 12:27 AM INDICATION / CLINICAL INFORMATION: cough, fever. COMPARISON: 08/04/18 FINDINGS: SUPPORT DEVICES: None. HEART / MEDIASTINUM: No significant abnormality. LUNGS / PLEURA: No significant pulmonary or pleural abnormality. Slightly suboptimal inspiration with low lung volumes. ADDITIONAL FINDINGS: No significant additional findings. IMPRESSION: 1. No acute findings. No significant change. Signer Name: Reid Olivier MD Signed: 06/22/2019 1:32 AM Workstation Name: [id number]
[2019-06-22 01:55] LABS: Basophils % (Auto) 0.7 % (0.0-1.8); Eosinophils # (Auto) 0.2 K/mm3 (0.0-0.4); Eosinophils % (Auto) 3.6 % (0.0-4.3); Hematocrit 46.3 % (35.5-45.6); Lymphocytes # (Auto) 1.2 K/mm3 (1.2-5.4); Lymphocytes % (Auto) 20.7 % (13.4-35.0); Mean Corpuscular HGB Conc 32 % (32-34); Mean Corpuscular Volume 72 fl (84-94); Monocytes # (Auto) 0.5 K/mm3 (0.0-0.8); Monocytes % (Auto) 9.1 % (0.0-7.3); Platelet Count 226 K/mm3 (140-440); Red Blood Count 6.41 M/mm3 (3.65-5.03); Red Cell Distribution Width 17.1 % (13.2-15.2)
[2019-06-22 02:20] LABS: Alanine Aminotransferase 58 units/L (7-56); Albumin 4.9 g/dL (3.9-5); BUN/Creatinine Ratio 13; Blood Urea Nitrogen 8 mg/dL (9-20); Calcium 9.7 mg/dL (8.4-10.2); Hemolysis Index 8
[2019-06-22 02:32] LABS: C-Reactive Protein 0.6 mg/dL (0.00-1.30)
--- NOTE | 2019-06-22 02:55 | Emergency Department Report ---
- General Chief Complaint: Upper Respiratory Infection Stated Complaint: SHORTNESS OF BREATH Source: patient Mode of arrival: Ambulatory Limitations: No Limitations - History of Present Illness Initial Comments: Patient is a 48-year-old -[place]i male with a history of hypertension who presents to the ED with complaint of acute onset persistent nasal and sinus congestion, frontal sinus pressure and headache, sore throat, persistent dry cough with shortness of breath, diffuse body aches and pains and subjective fever for the last 2 days. Patient states that he was sent home from work because of the symptoms. Patient states that 1 of his colleagues at work had tested positive for Covid-19 viral pandemic. Patient denies dizziness, syncope, chest pain, abdominal pain, nausea, vomiting, diarrhea, dysuria, urinary frequency and urgency, syncope, seizures, palpitations, hematuria, or testicular pain. Patient states that he has been taking [id number] pain medications with no relief. MD Complaint: fever, cough, sore throat, rhinorrhea, nasal congestion, sinus pain, other (Diffuse body aches and pains) -: Sudden, days(s) (2) Severity: moderate Severity scale (0 -10): 6 Quality: sharp, aching Consistency: constant Improves With: nothing Worsens With: nothing Context: sick contacts Associated Symptoms: fever, chills, myalgias, headache, rhinorrhea, nasal congestion, sore throat, cough, shortness of breath. denies: stiff neck, chest pain, abdominal pain, nausea, vomiting, diarrhea, dysuria, rash, confusion, weight loss, epistaxis, hoarseness, ear pain, other Treatments Prior to Arrival: Ibuprofen - Related Data Home Medications Medication Instructions Recorded Confirmed Last Taken High Potency Iron 27 MG 27 mg PO DAILY 08/05/18 08/05/18 08/02/18 10:00 Previous Rx's Medication Instructions Recorded Last Taken Type Gabapentin 100 mg PO QHS PRN #30 08/09/18 Unknown Rx Protonix 40 mg PO BID #60 08/09/18 Unknown Rx Sucralfate [Carafate] 1 gm PO ACHS #120 tablet 08/09/18 Unknown Rx amLODIPine 5 mg PO DAILY #30 08/09/18 Unknown Rx oxyCODONE /ACETAMINOPHEN [Percocet 1 tab PO Q6H PRN #16 tablet 08/09/18 Unknown Rx 5/325 mg] Acetaminophen [Tylenol] 500 mg PO Q6HR PRN #30 tablet 06/22/19 Unknown Rx Albuterol Sulfate [Proventil Hfa] 1 - 2 puff IH Q6H PRN #1 inh 06/22/19 Unknown Rx Azithromycin [Zithromax Z-QUETA] 250 mg PO DAILY #6 tablet 06/22/19 Unknown Rx Benzonatate [Tessalon Perles] 100 mg PO Q8HR #30 capsule 06/22/19 Unknown Rx Cetirizine HCl [Zyrtec 10mg tab] 10 mg PO DAILY #30 tablet 06/22/19 Unknown Rx Hydroxychloroquine [Plaquenil] 200 mg PO QDAY #12 tablet 06/22/19 Unknown Rx methylPREDNISolone [Medrol 4MG 4 mg PO DAILY #21 tab.ds.pk 06/22/19 Unknown Rx DOSEPAK (21 tabs)] Allergies Allergy/AdvReac Type Severity Reaction Status Date / Time Penicillins Allergy Hives Verified 06/21/19 23:39 ED Review of Systems ROS: Stated complaint: SHORTNESS OF BREATH Other details as noted in HPI Constitutional: chills, fever, malaise, weakness Eyes: denies: eye pain, eye discharge, vision change ENT: throat pain, congestion. denies: ear pain Respiratory: cough, shortness of breath, wheezing Cardiovascular: denies: chest pain, palpitations Endocrine: no symptoms reported Gastrointestinal: denies: abdominal pain, nausea, vomiting, diarrhea, hematochezia Genitourinary: denies: urgency, dysuria Musculoskeletal: denies: back pain, joint swelling, arthralgia Skin: denies: rash, lesions Neurological: headache. denies: weakness, paresthesias Psychiatric: denies: anxiety, depression Hematological/Lymphatic: denies: easy bleeding, easy bruising ED Past Medical Hx - Past Medical History Hx Hypertension: Yes Hx GERD: Yes Hx Sickle Cell Disease: Yes (SICKLE CELL TRAIT) Hx Seizures: Yes (new onset seizures on admission) Hx Tuberculosis: No Hx HIV: No Additional medical history: Sickle Cell trait - Social History Smoking Status: Never Smoker Substance Use Type: None - Medications Home Medications: Home Medications Medication Instructions Recorded Confirmed Last Taken Type High Potency Iron 27 MG 27 mg PO DAILY 08/05/18 08/05/18 08/02/18 10:00 History Gabapentin 100 mg PO QHS PRN #30 08/09/18 Unknown Rx Protonix 40 mg PO BID #60 08/09/18 Unknown Rx Sucralfate [Carafate] 1 gm PO ACHS #120 tablet 08/09/18 Unknown Rx amLODIPine 5 mg PO DAILY #30 08/09/18 Unknown Rx oxyCODONE /ACETAMINOPHEN [Percocet 1 tab PO Q6H PRN #16 tablet 08/09/18 Unknown Rx 5/325 mg] Acetaminophen [Tylenol] 500 mg PO Q6HR PRN #30 tablet 06/22/19 Unknown Rx Albuterol Sulfate [Proventil Hfa] 1 - 2 puff IH Q6H PRN #1 inh 06/22/19 Unknown Rx Azithromycin [Zithromax Z-QUETA] 250 mg PO DAILY #6 tablet 06/22/19 Unknown Rx Benzonatate [Tessalon Perles] 100 mg PO Q8HR #30 capsule 06/22/19 Unknown Rx Cetirizine HCl [Zyrtec 10mg tab] 10 mg PO DAILY #30 tablet 06/22/19 Unknown Rx Hydroxychloroquine [Plaquenil] 200 mg PO QDAY #12 tablet 06/22/19 Unknown Rx methylPREDNISolone [Medrol 4MG 4 mg PO DAILY #21 tab.ds.pk 06/22/19 Unknown Rx DOSEPAK (21 tabs)] ED Physical Exam - General Limitations: No Limitations General appearance: alert, in no apparent distress - Head Head exam: Present: atraumatic, normocephalic, normal inspection - Eye Eye exam: Present: normal appearance, PERRL, EOMI Pupils: Present: normal accommodation - ENT ENT exam: Present: normal orophraynx, mucous membranes moist, TM's normal bilaterally, normal external ear exam, other (Grossly congested nasal passages; palpable frontal sinus tenderness) - Neck Neck exam: Present: normal inspection, full ROM. Absent: tenderness - Respiratory Respiratory exam: Present: wheezes (Mild diffuse coarse wheezes throughout). Absent: respiratory distress, rales, rhonchi, chest wall tenderness, accessory muscle use, decreased breath sounds, prolonged expiratory - Cardiovascular Cardiovascular Exam: Present: regular rate, normal rhythm, normal heart sounds. Absent: systolic murmur, diastolic murmur, rubs, gallop - GI/Abdominal GI/Abdominal exam: Present: soft, normal bowel sounds. Absent: tenderness, guarding, rebound, hyperactive bowel sounds, hypoactive bowel sounds - Extremities Exam Extremities exam: Present: normal inspection, full ROM, normal capillary refill - Back Exam Back exam: Present: normal inspection, full ROM. Absent: tenderness, CVA tenderness (R), muscle spasm, paraspinal tenderness - Neurological Exam Neurological exam: Present: alert, oriented X3, CN II-XII intact, normal gait, reflexes normal - Psychiatric Psychiatric exam: Present: normal affect, normal mood - Skin Skin exam: Present: warm, dry, intact, normal color. Absent: rash ED Course Vital Signs 06/21/19 06/22/19 23:37 01:31 Temperature 98.7 F Pulse Rate 97 H Respiratory 18 18 Rate Blood Pressure 91/46 O2 Sat by Pulse 96 Oximetry ED Medical Decision Making - Lab Data Result diagrams: 06/22/19 01:38 06/22/19 01:38 - Radiology Data Radiology results: report reviewed, image reviewed Findings [address] [address] XRay Report Signed Patient: GENNARO WALSH MR#: [id number] : 1970 Acct:[id number] Age/Sex: 48 / M ADM Date: 06/21/19 Loc: ED Attending Dr: Ordering Physician: DANNA SAUNDERS Date of Service: 06/22/19 Procedure(s): XR chest 1V ap Accession Number(s): [id number] cc: DANNA SAUNDERS Fluoro Time In Minutes: CHEST 1 VIEW 06/22/2019 12:27 AM INDICATION / CLINICAL INFORMATION: cough, fever. COMPARISON: 08/04/18 FINDINGS: SUPPORT DEVICES: None. HEART / MEDIASTINUM: No significant abnormality. LUNGS / PLEURA: No significant pulmonary or pleural abnormality. Slightly suboptimal inspiration with low lung volumes. ADDITIONAL FINDINGS: No significant additional findings. IMPRESSION: 1. No acute findings. No significant change. Signer Name: Reid Olivier MD Signed: 06/22/2019 1:32 AM Workstation Name: [id number] Transcribed By: DT Dictated By: Eliazar Olivier MD Electronically Authenticated By: Eliazar Olivier MD Signed Date/Time: 06/22/19131 DD/ 0 TD/TT: - Medical Decision Making This is a 48-year-old -[place]i male with a history of hypertension who presents to the ED with complaint of acute onset persistent nasal and sinus congestion, frontal sinus pressure and headache, sore throat, persistent dry cough with shortness of breath, diffuse body aches and pains and subjective fever for the last 2 days. Patient states that he was sent home from work because of the symptoms. Patient states that 1 of his colleagues at work had tested positive for Covid-19 viral pandemic. Patient states that he has been taking [id number] medication with no relief. In the ED, patient is alert and oriented x3 and is not in any distress. Patient was treated for pain in the ED and also got a DuoNeb treatment and Solu-Medrol. Chest x-ray shows no acute cardiopulmonary abnormalities or pneumonitis. Lab test results were reviewed and are all nonactionable except for slightly elevated LFTs including AST of 53 and ALT of 58. On reevaluation, patient pain is well controlled with medications, and wheezing resolved with nebulizer treatment. Patient will discharge home on medications and advised to self quarantine for 14 days as a precaution for suspected Covid-19 viral infection. Patient was otherwise advised to return to the ED immediately if symptoms get worse. - Differential Diagnosis Pneumonia; URI; Sinusitis; Bronchitis; Covid-19 Critical care attestation.: If time is entered above; I have spent that time in minutes in the direct care of this critically ill patient, excluding procedure time. ED Disposition Clinical Impression: Acute upper respiratory infection, Acute non-recurrent frontal sinusitis Acute bronchitis Qualifiers: Bronchitis organism: other organism Qualified Code(s): J20.8 - Acute bronchitis due to other specified organisms Disposition: DC-01 TO HOME OR SELFCARE Is pt being admited?: No Does the pt Need Aspirin: No Condition: Stable Instructions: Upper Respiratory Infection (ED), Acute Bronchitis (ED), Acute Bacterial Rhinosinusitis (ED) Additional Instructions: All your lab test results are unremarkable, and the chest x-ray is also normal. Therefore take medications with food, drink plenty fluids and you are strictly advised to self quarantine at home for 14 days and to follow-up with your [facility] physician thereafter for further evaluation. Return to the ED immediately if symptoms get worse. Prescriptions: Acetaminophen [Tylenol] 500 mg PO Q6HR PRN #30 tablet PRN Reason: Pain , Severe (7-10) methylPREDNISolone [Medrol 4MG DOSEPAK (21 tabs)] 4 mg PO DAILY #21 tab.ds.pk Hydroxychloroquine [Plaquenil] 200 mg PO QDAY #12 tablet Albuterol Sulfate [Proventil Hfa] 1 - 2 puff IH Q6H PRN #1 inh PRN Reason: Dyspnea Benzonatate [Tessalon Perles] 100 mg PO Q8HR #30 capsule Azithromycin [Zithromax Z-QUETA] 250 mg PO DAILY #6 tablet Cetirizine HCl [Zyrtec 10mg tab] 10 mg PO DAILY #30 tablet Referrals: [facility] [Provider Group] - 7-10 days Forms: Work/School Release Form(ED) Time of Disposition: 03:00 Print Language: MALAY
[2019-06-22 03:13] VITALS: BP 132/85
[2019-06-22] MEDS ORDERED: DEXTROSE 50% IN WATER (25GM) 50 ML SYRINGE IV ONE (10:03)
== END 2019-06-22 03:15 | disposition home or self-care (01) ==
LOC: ED 23:31
DX: J20.8 Acute bronchitis due to other specified organisms (principal); J06.9 Acute upper respiratory infection, unspecified; J32.1 Chronic frontal sinusitis; I10 Essential (primary) hypertension; K21.9 Gastro-esophageal reflux disease without esophagitis; D57.80 Other sickle-cell disorders without crisis; Z88.0 Allergy status to penicillin
CPT/HCPCS: 36415; 71045; 80053; 82728; 83615; 84145; 85025; 85379; 86140; 94640; 96374; 99284; J2930; J7030

== ENCOUNTER 2020-09-03 01:36 | Emergency (ER) | payer BC ==
[2020-09-03] MEDS ORDERED: ASPIRIN 325 MG TAB PO ONE (01:41)
[2020-09-03 02:38] LABS: Basophils % (Auto) 0.8 % (0.0-1.8); Eosinophils # (Auto) 0.2 K/mm3 (0.0-0.4); Eosinophils % (Auto) 3.3 % (0.0-4.3); Hematocrit 41.4 % (35.5-45.6); Hemoglobin 14.2 gm/dl (11.8-15.2); Lymphocytes # (Auto) 1.9 K/mm3 (1.2-5.4); Lymphocytes % (Auto) 31.9 % (13.4-35.0); Mean Corpuscular HGB Conc 34 % (32-34); Mean Corpuscular Volume 79 fl (84-94); Monocytes # (Auto) 0.6 K/mm3 (0.0-0.8); Monocytes % (Auto) 10.5 % (0.0-7.3); Platelet Count 218 K/mm3 (140-440); Red Blood Count 5.26 M/mm3 (3.65-5.03); Red Cell Distribution Width 14.6 % (13.2-15.2)
[2020-09-03 03:02] LABS: Alanine Aminotransferase 8 units/L (7-56); Albumin 4.4 g/dL (3.9-5); Blood Urea Nitrogen 9 mg/dL (9-20); Calcium 8.8 mg/dL (8.4-10.2); Hemolysis Index 3
[2020-09-03 03:06] LABS: BUN/Creatinine Ratio 13
--- NOTE | 2020-09-03 03:16 | Emergency Department Report ---
ED Chest Pain HPI - General Chief Complaint: Chest Pain Stated Complaint: CHEST PAIN/SOB PUI?: No Time Seen by Provider: 09/03/20 03:11 Source: patient Mode of arrival: Ambulatory Limitations: No Limitations - History of Present Illness Initial Comments: Patient is a 50-year-old male who presents emergency room with complaints of chest pain and shortness of breath and heart palpitations. Patient states he was out for a walk and began to have chest pain and difficulty breathing as well as heart palpitations. Patient dates that started at midnight. Patient states that his chest pain, palpitations shortness breath better with rest. Patient states his chest pain, palpitation and shortness of breath are worse with exertion. Patient denies fever and chills. Patient denies diaphoresis. Patient denies nausea vomiting. Patient denies recent travel. Patient denies recent international travel. Patient denies exposure to the novel coronavirus. Patient denies sick contacts. Patient denies fever and chills. Patient denies cough. Patient denies diarrhea. Patient denies coming in contact with anybody with symptoms of the novel coronavirus. MD Complaint: chest pain -: Sudden Onset: during exertion Pain Location: left chest Pain Radiation: none Severity: severe Severity scale (0 -10): 10 Quality: sharp Consistency: constant Improves With: rest Worsens With: exertion re: dyspnea. denies: nausea, vomting, diaphoresis Other Symptoms: palpitations. denies: cough, fever, syncope, rash, acid taste in mouth, leg swelling, burping Treatments Prior to Arrival: none Aspirin use within the Past 7 Days: (0) No - Related Data On Oral Contraceptives: No Home Medications Medication Instructions Recorded Confirmed Last Taken High Potency Iron 27 MG 27 mg PO DAILY 08/05/18 08/05/18 08/02/18 10:00 Previous Rx's Medication Instructions Recorded Last Taken Type Gabapentin 100 mg PO QHS PRN #30 08/09/18 Unknown Rx Protonix 40 mg PO BID #60 08/09/18 Unknown Rx Sucralfate [Carafate] 1 gm PO ACHS #120 tablet 08/09/18 Unknown Rx amLODIPine 5 mg PO DAILY #30 08/09/18 Unknown Rx oxyCODONE /ACETAMINOPHEN [Percocet 1 tab PO Q6H PRN #16 tablet 08/09/18 Unknown Rx 5/325 mg] Acetaminophen [Tylenol] 500 mg PO Q6HR PRN #30 tablet 06/22/19 Unknown Rx Albuterol Sulfate [Proventil Hfa] 1 - 2 puff IH Q6H PRN #1 inh 06/22/19 Unknown Rx Azithromycin [Zithromax Z-QUETA] 250 mg PO DAILY #6 tablet 06/22/19 Unknown Rx Benzonatate [Tessalon Perles] 100 mg PO Q8HR #30 capsule 06/22/19 Unknown Rx Cetirizine HCl [Zyrtec 10mg tab] 10 mg PO DAILY #30 tablet 06/22/19 Unknown Rx Hydroxychloroquine [Plaquenil] 200 mg PO QDAY #12 tablet 06/22/19 Unknown Rx methylPREDNISolone [Medrol 4MG 4 mg PO DAILY #21 tab.ds.pk 06/22/19 Unknown Rx DOSEPAK (21 tabs)] Allergies Allergy/AdvReac Type Severity Reaction Status Date / Time Penicillins Allergy Hives Verified 06/22/19 10:07 Heart Score - HEART Score History: Slightly suspicious EKG: Normal Age: 45-65 Risk factors: No known risk factors Troponin: < normal limit HEART Score: 1 - EKG Read Time Time EKG Completed: 01:40 EKG Read Time: 01:45 ED Review of Systems ROS: Stated complaint: CHEST PAIN/SOB Other details as noted in HPI Constitutional: denies: chills, fever Eyes: denies: eye pain, eye discharge, vision change ENT: denies: ear pain, throat pain Respiratory: shortness of breath. denies: cough, wheezing Cardiovascular: as per HPI, chest pain, palpitations, dyspnea on exertion Endocrine: no symptoms reported Gastrointestinal: denies: abdominal pain, nausea, diarrhea Genitourinary: denies: urgency, dysuria Musculoskeletal: denies: back pain, joint swelling, arthralgia Skin: denies: rash, lesions Neurological: denies: headache, weakness, paresthesias Psychiatric: denies: anxiety, depression Hematological/Lymphatic: denies: easy bleeding, easy bruising ED Past Medical Hx - Past Medical History Previous Medical History?: Yes Hx Hypertension: Yes Hx GERD: Yes Hx Sickle Cell Disease: Yes (SICKLE CELL TRAIT) Hx Seizures: Yes (new onset seizures on admission) Hx Tuberculosis: No Hx HIV: No Additional medical history: Sickle Cell trait - Surgical History Past Surgical History?: Yes Additional Surgical History: Bowel Obstruction - Family History Family history: no significant - Social History Smoking Status: Never Smoker Substance Use Type: None - Medications Home Medications: Home Medications Medication Instructions Recorded Confirmed Last Taken Type High Potency Iron 27 MG 27 mg PO DAILY 08/05/18 08/05/18 08/02/18 10:00 History Gabapentin 100 mg PO QHS PRN #30 08/09/18 Unknown Rx Protonix 40 mg PO BID #60 08/09/18 Unknown Rx Sucralfate [Carafate] 1 gm PO ACHS #120 tablet 08/09/18 Unknown Rx amLODIPine 5 mg PO DAILY #30 08/09/18 Unknown Rx oxyCODONE /ACETAMINOPHEN [Percocet 1 tab PO Q6H PRN #16 tablet 08/09/18 Unknown Rx 5/325 mg] Acetaminophen [Tylenol] 500 mg PO Q6HR PRN #30 tablet 06/22/19 Unknown Rx Albuterol Sulfate [Proventil Hfa] 1 - 2 puff IH Q6H PRN #1 inh 06/22/19 Unknown Rx Azithromycin [Zithromax Z-QUETA] 250 mg PO DAILY #6 tablet 06/22/19 Unknown Rx Benzonatate [Tessalon Perles] 100 mg PO Q8HR #30 capsule 06/22/19 Unknown Rx Cetirizine HCl [Zyrtec 10mg tab] 10 mg PO DAILY #30 tablet 06/22/19 Unknown Rx Hydroxychloroquine [Plaquenil] 200 mg PO QDAY #12 tablet 06/22/19 Unknown Rx methylPREDNISolone [Medrol 4MG 4 mg PO DAILY #21 tab.ds.pk 06/22/19 Unknown Rx DOSEPAK (21 tabs)] ED Physical Exam - General Limitations: No Limitations General appearance: alert, in no apparent distress - Head Head exam: Present: atraumatic, normocephalic - Eye Eye exam: Present: normal appearance - ENT ENT exam: Present: mucous membranes moist - Neck Neck exam: Present: normal inspection - Respiratory Respiratory exam: Present: normal lung sounds bilaterally. Absent: respiratory distress - Cardiovascular Cardiovascular Exam: Present: regular rate, normal rhythm. Absent: systolic murmur, diastolic murmur, rubs, gallop - GI/Abdominal GI/Abdominal exam: Present: soft, normal bowel sounds - Rectal Rectal exam: Present: deferred - Extremities Exam Extremities exam: Present: normal inspection - Back Exam Back exam: Present: normal inspection - Neurological Exam Neurological exam: Present: alert, oriented X3 - Psychiatric Psychiatric exam: Present: normal affect, normal mood - Skin Skin exam: Present: warm, dry, intact, normal color. Absent: rash ED Course Vital Signs 09/03/20 09/03/20 09/03/20 01:45 02:58 03:00 Temperature 98.3 F Pulse Rate 96 H 85 86 Respiratory 16 18 10 L Rate Blood Pressure 123/86 136/88 Blood Pressure 136/88 [Left] O2 Sat by Pulse 95 98 98 Oximetry 09/03/20 09/03/20 09/03/20 03:30 04:00 04:31 Temperature Pulse Rate 80 80 75 Respiratory 9 L 10 L 10 L Rate Blood Pressure 119/76 115/69 Blood Pressure [Left] O2 Sat by Pulse 98 99 99 Oximetry 09/03/20 09/03/20 05:01 05:31 Temperature Pulse Rate 68 71 Respiratory 7 L 7 L Rate Blood Pressure 113/83 114/81 Blood Pressure [Left] O2 Sat by Pulse 99 98 Oximetry - Reevaluation(s) Reevaluation #1: Patient states that his pain has resolved. I discussed all results and clinical findings with patient. I discussed plan of care with patient. Patient agrees with plan of care. Patient is stable for discharge. Patient will be discharged home. Patient given discharge instructions. Patient voiced understanding of discharge instructions. Since the patient presented to the emergency room with complaints of chest pain, the patient will refer to outpatient cardiology group for further evaluation treatment of chest pain and risk stratification. Patient information faxed used to cardiology group. 09/03/20 05:38 JACK score - Jack Score Age > 65: (0) No Aspirin use within the Past 7 Days: (0) No 3 or more CAD Risk Factors: (0) No 2 or more Angina events in past 24 hrs: (0) No Known CAD with more than 50% Stenosis: (0) No Elevated Cardiac Markers: (0) No ST Deviation Greater than 0.5mm: (0) No JACK Score: 0 ED Medical Decision Making - Lab Data Result diagrams: 09/03/20 01:52 09/03/20 01:52 - EKG Data -: EKG Interpreted by Me EKG shows normal: sinus rhythm, axis, intervals, QRS complexes, ST-T waves Rate: normal - EKG Data Interpretation: other (PVCs noted.) - Radiology Data Radiology results: report reviewed, image reviewed interpreted by me: Chest x-ray: No pneumonia, no pneumothorax, no foreign body, no osseous findings, no acute findings - Medical Decision Making Patient is a 50-year-old male presents emergency room with complaints of chest pain, shortness of breath, palpitation. Patient states is all occurred while he was walking. Patient's symptoms improved with rest. Patient's EKG shows a sinus tach with PVCs. Patient had labs done which were essentially unremarkable. Patient had 2 - troponins. Patient's heart score is low. Patient has minimal cardiac risk factors. Patient's chest pain can be worked up as an outpatient. Patient's information faxed over to her local cardiology group for further evaluation treatment and risk stratification of chest pain. Patient vital signs stable. Patient had a chest x-ray which was negative for acute findings. I personally reviewed the chest x-ray and EKG. Patient given discharge instructions. Patient stable for discharge. Patient not require any further emergency medical services or inpatient services. Patient discharged home. Patient symptoms resolved prior to discharge. On the first EKG the patient had PVCs and on the repeat EKG, no PVCs were noted. - Differential Diagnosis Chest pain, palpitation, anxiety, electrolyte imbalance, dehydration Critical care attestation.: If time is entered above; I have spent that time in minutes in the direct care of this critically ill patient, excluding procedure time. ED Disposition Clinical Impression: Dehydration, Shortness of breath, Heart palpitations Chest pain Qualifiers: Chest pain type: unspecified Qualified Code(s): R07.9 - Chest pain, unspecified Disposition: DC-01 TO HOME OR SELFCARE Is pt being admited?: No Does the pt Need Aspirin: No Condition: Stable Instructions: Dehydration, Adult, [id number], Nonspecific Chest Pain, Adult, [id number], Palpitations Additional Instructions: Patient to follow-up with primary care in 2 to 3 days. Patient to follow-up with cardiology in 2 to 3 days. Patient to rest. Patient to increase water. Patient to avoid strenuous exercise or heavy lifting until cleared by cardiology and primary care. Patient eat a low-salt diet. Patient to monitor blood pr essure at home. Patient to keep a blood pressure log. Patient to take blood pressure log to all follow-up points. Patient to eat a heart healthy diet. Patient to take Tylenol or ibuprofen as needed for pain. Patient to return to the ER if condition worsens, changes or new symptoms arise. Referrals: BEULAH CENTENO MD [Staff Physician] - 2-3 Days JOJO DUBOIS SR, MD [Primary Care Provider] - 2-3 Days Time of Disposition: 05:52
--- NOTE | 2020-09-03 03:51 | XRay Report ---
CHEST 2 VIEWS INDICATION / CLINICAL INFORMATION: chestpain. COMPARISON: None available. FINDINGS: SUPPORT DEVICES: None. HEART / MEDIASTINUM: No significant abnormality. LUNGS / PLEURA: No significant pulmonary or pleural abnormality. No pneumothorax. ADDITIONAL FINDINGS: No significant additional findings. IMPRESSION: 1. No acute findings. Signer Name: Thor Talamantes MD Signed: 09/03/2020 3:46 AM Workstation Name: [id number]
[2020-09-03 06:39] VITALS: BP 113/83
--- NOTE | 2020-09-03 18:11 | Electrocardiograph Report ---
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
--- NOTE | 2020-09-03 18:13 | Electrocardiograph Report ---
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
== END 2020-09-03 06:39 | disposition home or self-care (01) ==
LOC: ED 01:36
DX: E86.0 Dehydration (principal); R07.9 Chest pain, unspecified; R06.02 Shortness of breath; R00.2 Palpitations; I10 Essential (primary) hypertension; K21.9 Gastro-esophageal reflux disease without esophagitis; Z79.899 Other long term (current) drug therapy; Z88.0 Allergy status to penicillin; Z98.890 Other specified postprocedural states
CPT/HCPCS: 36415; 71046; 80053; 84484; 85025; 93005